=== PATIENT | male | born 1945 | race Caucasian/White ===

== ENCOUNTER 2016-06-07 18:15 | Inpatient (IN) | payer MEDICARE, BC ==
[~2016-06-07] VITALS: Ht 198.1 cm; Wt 85.9 kg
--- NOTE | ~2016-06-07 | OR ---
PATIENT'S NAME: DELFINA JUAREZ [facility] AGE: 70 Y [address] ROOM: [place] [id number] [facility] ADMIT DATE: 06/07/2016 OR/Procedure Report DISCHARGE DATE: FAMILY PHYSICIAN: Jaxon Vasquez MD ATTENDING PHYSICIAN: NADJA SEYMOUR V SURGEON: Areli Parsons MD MOBILE BATTERY TECHNICIAN: DATE OF PROCEDURE: 06/15/2016 ANESTHESIA: Sedation with Ativan. PRE-PROCEDURE DIAGNOSES: 1. Post-intraventricular hemorrhage Hydrocephalus. 2. Decreased level of consciousness. POST-PROCEDURE DIAGNOSES: 1. Post-intraventricular hemorrhage Hydrocephalus. 2. Decreased level of consciousness. PROCEDURES PERFORMED: Insertion of a lumbar drain for cerebrospinal fluid drainage. CLINICAL HISTORY: The patient is a 70-year-old male patient, who was admitted on June 07, 2016 with the main diagnosis of a large right thalamic hemorrhage with intraventricular extension. The patient had a dense left hemiplegia and facial droop. The patient had no hydrocephalus on the admission imaging. Gradually, the patient's level of consciousness started to deteriorate. On the day of procedure, the patient was examined. He was only responding to sternal rub, and according to the family, his level of consciousness significantly changed. The patient was assessed by the hospitalist, and his blood sugar was normal. He was being treated for UTI urinary tract infection with the appropriate antibiotics. Brain imaging was repeated, and that showed an enlargement of the ventricles and no new hemorrhage. I recommended the above-mentioned procedure to try to drain CSF cerebrospinal fluid, and hopefully improve the patient's level of consciousness. If the patient's level of conscious improves, then this patient will require placement of a ventriculoperitoneal shunt. I discussed the procedure and the risks with the patient and the patient's . A signed informed consent was obtained. PATIENT'S NAME: DELFINA JUAREZ [facility] AGE: 70 Y [address] ROOM: [place] [id number] LOCATION: [facility] ADMIT DATE: 06/07/2016 OR/Procedure Report DISCHARGE DATE: FAMILY PHYSICIAN: Jaxon Vasquez MD ATTENDING PHYSICIAN: NADJA SEYMOUR V DESCRIPTION OF PROCEDURE: The patient was placed in a lateral position with the right side up. The lumbar region was prepped and draped. The interspinous space at L4-L5 was identified. Local anesthetic was applied. Tuohy needle was inserted, then blood-tinged CSF cerebrospinal fluid escaped under [id number] pressure. The lumbar drain catheter was inserted without any resistance. The catheter was capped and tied off. The catheter was then secured to the skin with 3-0 silk. The lumbar region was covered with Tegaderm. The catheter was tested, and there was spontaneous CSF cerebrospinal fluid drainage. The catheter was connected to the drainage system, and we had satisfactory CSF cerebrospinal fluid drainage. I had no complications during the procedure, and the patient tolerated it very well. MD SHAHBAZ KELLER/modl /[id number] CC: MD Jaxon Caro MD d: 06/15/16 2223 t: 06/18/16 1325, OPERATIVE SUMMARY
--- NOTE | ~2016-06-07 | HP ---
PATIENT'S NAME: DELFINA JUAREZ [facility] AGE: 70 Y [address] ROOM: [place] [address] LOCATION: [facility] ADMIT DATE: 06/07/2016 History & Physical DISCHARGE DATE: FAMILY PHYSICIAN: PHYSICIAN, UNKNOWN ATTENDING PHYSICIAN: NADJA SEYMOUR V DATE OF SERVICE: CHIEF COMPLAINT: Left-sided weakness. HISTORY OF PRESENT ILLNESS: The patient is a 70-year-old male with past medical history of dementia and hypothyroidism. The patient was noted to have diffuse left-sided weakness at home earlier today. He was taken to the hospital in [place]. A CAT scan there showed a medium-sized right thalamic hemorrhage with extension into the 3rd ventricle. The patient was transferred to [facility] for neurosurgical evaluation. At this point, the patient has been seen by Dr. Parsons, who recommended blood pressure control and serial neuro checks. No urgent surgical intervention is planned. REVIEW OF SYSTEMS: The patient only complains of some nausea which is being controlled with antiemetics. All systems have been reviewed and are negative aside from pertinent positives mentioned above. PAST MEDICAL HISTORY: This is all conveyed by the patient's as he is quite demented with Alzheimer's dementia, typically alert and oriented x2 only, hypothyroidism. That was all the has reported. SURGICAL HISTORY: denies. SOCIAL HISTORY: The patient lives at home with his spouse. No history or ongoing toxic substance use. FAMILY HISTORY: Family history was reviewed and is noncontributory due to a known underlying etiology for his presentation. CURRENT MEDICATIONS: 1. Aspirin. 2. Levothyroxine. PATIENT'S NAME: DELFINA JUAREZ [facility] AGE: 70 Y [address] ROOM: [address] [address] LOCATION: [facility] ADMIT DATE: 06/07/2016 History & Physical DISCHARGE DATE: FAMILY PHYSICIAN: PHYSICIAN, UNKNOWN ATTENDING PHYSICIAN: NADJA SEYMOUR V 3. Namenda. PHYSICAL EXAMINATION: VITAL SIGNS: Blood pressure 153/80, pulse is 76, saturating 96% on room air. Afebrile, respirations are 16. GENERAL: Appears as an elderly, frail male, straining to go to the bathroom. NEUROLOGIC: Significant for left-sided hemiparesis. Eye exam shows pupils are reactive to light. The patient is awake and alert, appears to be at his baseline. LYMPHATIC: No cervical lymphadenopathy. NECK: No thyromegaly. LUNGS: Clear to auscultation. HEART: Rate is regular with no appreciable murmurs, gallops, or rubs. GI: Abdomen is soft, nontender, and nondistended. : No costovertebral angle tenderness. Vascular 2+ pedal pulses. MUSCULOSKELETAL: No muscle or joint abnormalities. SKIN: Warm and dry. PSYCHIATRIC: Examination reveals appropriate mood, cognition, and affect. LABORATORY DATA: Studies available from [place]; a CAT scan as described above, unremarkable basic metabolic profile, EKG Shows right bundle-branch block. ASSESSMENT AND PLAN: 1. This is a 70-year-old male, who is admitted with right intraparenchymal hemorrhage. We will control the blood pressure to keep systolic below 150 as per discussion with Dr. Parsons. The patient will be kept n.p.o. and will receive serial neuro checks. A re-imaging will be conducted tomorrow as per Dr. Parsons. 2. Hypothyroidism. We will continue the patient's Synthroid. 3. Dementia. We will hold off on his Namenda. 4. DVT prophylaxis. Will be non pharmacologic due to an ongoing hemorrhage. 5. We will provide him with GI regimen. Additional management will depend on clinical course. Time dedicated ti this patient's encounter is 25 minutes. MD MIKE WEBB/mirtha PATIENT'S NAME: DELFINA JUAREZ [facility] AGE: 70 Y [address] ROOM: [address] [address] LOCATION: [facility] ADMIT DATE: 06/07/2016 History & Physical DISCHARGE DATE: FAMILY PHYSICIAN: PHYSICIAN, UNKNOWN ATTENDING PHYSICIAN: NADJA SEYMOUR V /[id number] D: 356 T: HISTORY & PHYSICAL
--- NOTE | ~2016-06-07 | DS ---
PATIENT'S NAME: DELFINA JUAREZ [facility] AGE: 70 Y [address] ROOM: [place] [address] LOCATION: [facility] ADMIT DATE: 06/07/2016 Discharge Summary DISCHARGE DATE: 06/30/2016 FAMILY PHYSICIAN: Jaxon Vasquez MD ATTENDING PHYSICIAN: Frankie Bradley V ATTENDING PHYSICIAN: Stephen Hall MD PRIMARY CARE PHYSICIAN: Dr. Jaxon Vasquez. FINAL DIAGNOSES: 1. Right thalamic hemorrhage. 2. Communicating hydrocephalus, status post SKIVER MACHINE shunt. 3. Dementia. 4. Essential hypertension. 5. Status post SKIVER MACHINE shunt. 6. Dysphagia. 7. Urinary retention. CONSULTATIONS: 1. Neurosurgery, Dr. Parsons. 2. Rehab, Dr. Troncoso. PROCEDURES PERFORMED: 1. Insertion of a lumbar drain for CSF drainage by Dr. Parsons. 2. Stealth navigation for placement of ventricular catheter and left occipital SKIVER MACHINE shunt insertion by Dr. Parsons. REASON FOR ADMISSION: This is a 70-year-old male, who presented with left- sided weakness. CT scan showed that the patient had a right thalamic hemorrhage with extension into the third ventricle. He was then transferred to [facility]. Please see Dr. Bradley' admission H and P for further details. DIAGNOSTIC STUDIES: Duplex ultrasound of upper extremities was done, that showed no evidence of thrombophlebitis in the deep or superficial veins from the mid to the upper extremities. Accu-Chek was 102. ProBNP 228. Serial CBCs were done, that showed essentially normal white count, hemoglobin, hematocrit, and platelet levels. Serial CMPs were done, the patient had normal electrolytes. During this admission, his kidney function test was normal as well. Liver function tests were normal as well. PT 10.7, INR 1.0. UA showed many bacteria. On 06/13/2016, vitamin B12 was 259, TSH 2.11. PATIENT'S NAME: DELFINA JUAREZ [facility] AGE: 70 Y [address] ROOM: [place] [address] LOCATION: [facility] ADMIT DATE: 06/07/2016 Discharge Summary DISCHARGE DATE: 06/30/2016 FAMILY PHYSICIAN: Jaxon Vasquez MD ATTENDING PHYSICIAN: Frankie Bradley V CT head with no contrast was done for left-sided weakness on 06/08/2016, that showed hemorrhage, that was stable since previous day. Mild ventriculomegaly was noted. CT head was repeated on several occasions during this admission. Repeat CT head showed right thalamic hemorrhage that appeared stable. Blood in the ventricular system was again noted in the right lateral ventricle and in both occipital horns, slightly increased since prior volume. No new parenchymal hemorrhages were noted. The patient had increased drowsiness on 06/13/2016, and CT head showed stable head CT, intracranial hemorrhage without significant change was noted. On June 15, 2016, the patient underwent a repeat CT head, that showed right basal ganglia hemorrhage with breakthrough into the ventricles, that was resolving. No new hemorrhaging was noted. Transverse frontal horn measurement at the level of the foramina of Phan is 52 mm, which measured 1 mm larger than before. Atrophy and senescent white matter disease were stable. Repeat CT head was done the next day, that showed intracranial hemorrhage to be stable. On June 19, 2016, the patient underwent another CT head with no contrast, that showed right thalamic hematoma with expected evolutionary change, intraventricular hemorrhage decreased, ventriculomegaly decreased, bifrontal subdural collections, probably effusions were noted. The patient underwent a SKIVER MACHINE shunt at that point of time. A CT head without contrast was done subsequently and showed status post placement of SKIVER MACHINE shunt catheter without evidence of complication. Evolving intracranial hemorrhages were stable. The patient also underwent a shunt series postop and that showed ventriculoperitoneal shunt in place with distal portion of the catheter tubing visualized at the left lower quadrant of the abdomen. Urine culture showed Staph epidermidis, that was resistant to Bactrim and penicillin. HOSPITAL COURSE: This is a 70-year-old male, who presented with left hemiplegia. CT scan of the brain showed the patient had right thalamic hemorrhage with intraventricular extension at that point of time. The patient was transferred from an outlying facility and admitted to [facility]. Dr. Parsons, Neurosurgery, was consulted and followed up with the patient. Repeat CT scans were done on several occasions during this admission. Strict blood pressure control was achieved in the initial phase, and systolic blood pressure was kept less than 150 based on Neurosurgery's recommendations with the help of labetalol. The patient had dysphagia, and initially, there was discussion about placement of a feeding tube. However, the patient did not require any feeding tube. Speech Therapy followed up with the patient on a regular basis, and the patient continued to do better from a dysphagia perspective. PATIENT'S NAME: DELFINA JUAREZ [facility] AGE: 70 Y [address] ROOM: [id number] [place], [place] [address] LOCATION: [facility] ADMIT DATE: 06/07/2016 Discharge Summary DISCHARGE DATE: 06/30/2016 FAMILY PHYSICIAN: Jaxon Vasquez MD ATTENDING PHYSICIAN: Frankie Bradley V The patient had left hemiplegia secondary to his right thalamic hemorrhage. It was later found that the patient had extension into the ventricles and required a SKIVER MACHINE shunt. Dr. Parsons was then consulted, and the patient underwent a SKIVER MACHINE shunt placement with Dr. Parsons subsequently. Repeat CT head was done on several occasions during this admission and continued to show stability about the hemorrhage. A Doppler ultrasound of the upper extremity was done on 06/15/2016, that showed no evidence of DVT. The patient underwent a SKIVER MACHINE shunt placement, that was uncomplicated with Dr. Parsons on 06/19/2016. Subsequently, he was doing well and was awaiting placement at rehab facility closer to home in [place]. The patient also has dementia, and his dementia medications were started during this admission. The patient has dementia, and he has left hemiplegia currently. He received physical therapy during this admission, also received speech therapy, and he was tolerating p.o. His SKIVER MACHINE shunt was stable. He continued to do well and was then discharged to inpatient rehab facility in [place] in stable condition. DISCHARGE INSTRUCTIONS: The patient was discharged to [facility] in stable condition. He was flown by [facility]. The patient is to follow up with his PCP in 3-4 days' time. The patient is also to follow up with Neurosurgery in [place] in 2 weeks' time. Staple and suture removal with PCP/neurosurgery on 07/02/2016. The patient needs a repeat CT head per Neurosurgery on 07/20/2016. The patient is a do not resuscitate, do not intubate code status. He is on a pureed and regular liquid diet with 1:1 feed. Calorie count is not needed. The patient is not n.p.o. Weightbearing is as tolerated with assistance and fall precautions. OT, PT, and Speech therapy to evaluate and treat as indicated. O2 p.r.n. to keep sats more than 90%. CBC, BMP at followup with PCP recommended. The patient does not have a urinary catheter. He may not have alcoholic beverages. Rehab potential is fair. Discharge potential is fair. The patient and family are aware of condition and prognosis and were updated by me. May crush appropriate medications. DISCHARGE MEDICATIONS: 1. Norvasc 10 mg p.o. daily for hypertension. 2. Levothyroxine 100 mcg p.o. daily for hypothyroidism. 3. Namenda 10 mg p.o. b.i.d. for dementia. 4. Lopressor 12.5 mg p.o. b.i.d. for hypertension. 5. MiraLAX 17 g p.o. daily for constipation. 6. Flomax 0.4 mg p.o. q.h.s. for urinary retention. 7. Senokot syrup 10 mL p.o. q.h.s. for constipation. 8. Tylenol 650 mg p.o. q.6 hours p.r.n. pain/fever. 9. Milk of magnesia 30 mL p.o. daily p.r.n. constipation. PATIENT'S NAME: DELFINA JUAREZ [facility] AGE: 70 Y [address] ROOM: [address] [address] LOCATION: [facility] ADMIT DATE: 06/07/2016 Discharge Summary DISCHARGE DATE: 06/30/2016 FAMILY PHYSICIAN: Jaxon Vasquez MD ATTENDING PHYSICIAN: Frankie Bradley V 10. The patient's aspirin was held during this admission. Hold aspirin until repeat CT head and clearance by Neurosurgery in [place]. This patient was managed by hospitalist and neurosurgery teams during this admission. STEPHEN HALL MD MT/mirtha /[id number] d: 07/05/16 0307 t: 07/18/16 1004, DISCHARGE SUMMARY
--- NOTE | ~2016-06-07 | OR ---
PATIENT'S NAME: DELFINA JUAREZ [facility] AGE: 70 Y [address] ROOM: [place] [address] [facility] ADMIT DATE: 06/07/2016 OR/Procedure Report DISCHARGE DATE: FAMILY PHYSICIAN: Jaxon Vasquez MD ATTENDING PHYSICIAN: NADJA SEYMOUR V SURGEON: Areli Parsons MD PARKS AND RECREATION WORKER: DATE OF PROCEDURE: 06/19/2016 ANESTHESIOLOGIST: Piyush Walker MD ANESTHESIA: General. COMPLICATIONS: None. ESTIMATED BLOOD LOSS: Minimal. PREOPERATIVE DIAGNOSIS: Post intraventricular hemorrhage communicating hydrocephalus. POSTOPERATIVE DIAGNOSIS: Post intraventricular hemorrhage communicating hydrocephalus. PROCEDURES PERFORMED: 1. Stealth navigation system for placement of ventricular catheter. 2. Left occipital ventriculoperitoneal shunt insertion (valve used is medium pressure PS Medical valve). CLINICAL HISTORY/INDICATIONS FOR PROCEDURE: The patient is a 70-year-old male patient, who was admitted to the hospital on 06/07/2016 with a right thalamic hemorrhage extending into the ventricles causing intraventricular hemorrhage. Initially the patient had no hydrocephalus. Throughout the admission, the patient's level of consciousness deteriorated. Repeat brain imaging showed hydrocephalus. A lumbar drain was inserted and that resulted in significant improvement of the patient's level of consciousness. Given that, I recommended the above-mentioned surgery to the patient's family. I discussed the risks and benefits. Signed informed consent was obtained, and the patient was brought in for surgery. DESCRIPTION OF PROCEDURE: The patient was seen in the preoperative care unit and the correct site was marked. Then, he was transferred to the main operating theater, was given general anesthetic, and underwent endotracheal intubation without complications. Preoperative antibiotics were given. Calf compressors were used throughout the procedure. The patient's head was turned to the right side to expose the left parieto-occipital scalp. Pegram rolls PATIENT'S NAME: DELFINA JUAREZ [facility] AGE: 70 Y [address] ROOM: [place] [address] LOCATION: [facility] ADMIT DATE: 06/07/2016 OR/Procedure Report DISCHARGE DATE: FAMILY PHYSICIAN: Jaxon Vasquez MD ATTENDING PHYSICIAN: NADJA SEYMOUR V were placed under the left shoulder. The hair overlying the suboccipital and parietal regions were clipped off. The abdomen was also exposed. All the joints and bony prominences were securely padded. Then, the patient was registered to the Deep Domain navigation system with good accuracy. I then navigated the entry point (lit hole site) on the skin and based on that, I marked a question piyush incision around it. I also marked the periumbilical incision on the left side. The surgical sites were prepped and draped as per usual. The proposed skin incisions were infiltrated with 0.25% Marcaine with epinephrine. I started by opening the abdominal incision. The skin was sharply opened down to subcutaneous tissue, down to the anterior rectus sheath. The sheath was opened to expose the rectus muscle. The posterior rectus sheath was exposed and incised. I checked the entry into the peritoneum using four [place] and was satisfied with that. Then, I proceeded to open the head incision. The skin was sharply opened down to the subgaleal plane. Then, the pouch for the valve was created without complications. I used the Deep Domain navigation system to navigate the lit hole site on the bone and the periosteum there was coagulated. Then, a high-speed Midas Tim drill was brought in and one lit hole was fashioned down to the dura. The dura was coagulated and incised. The brain surface was coagulated and incised. Then, I proceeded to tunnel the distal catheter. The shunt passer was inserted from the head to the abdomen without complications. Distal catheter was tunneled. The distal catheter was connected to the medium pressure PS Medical valve, the connection was tied off with 2-0 silk. Then, I proceeded to insert the ventricular catheter. I used the Axi[employer] ventricular catheter minister of religion. The insertion of the catheter was navigated using the [employer]. I got CSF at low pressure at about 5 cm from the skull inner table. The catheter was advanced to about 8 cm from the skull inner table. CSF continued to drip. The ventricular catheter was connected to the valve and that was tied off. The valve was positioned in the pouch without complications. I was satisfied with that. The valve was secured to the periosteum with 4-0 Nurolon. Then, the distal catheter was inserted without any resistance into the peritoneal cavity. The opening into the posterior rectus sheath was closed using 2-0 Vicryl. Then, I proceeded to closure. The abdominal incision was closed in layers with 2-0 Vicryl to the anterior rectus sheath, 2-0 Vicryl to the subcutaneous tissue, and zaki to the skin. The head incision was also closed in layers with 2-0 Vicryl to the galea and a running 3-0 Prolene for the skin. Sterile dressings were applied. PATIENT'S NAME: DELFINA JUAREZ [facility] AGE: 70 Y [address] ROOM: [place] [address] LOCATION: [facility] ADMIT DATE: 06/07/2016 OR/Procedure Report DISCHARGE DATE: FAMILY PHYSICIAN: Jaxon Vasquez MD ATTENDING PHYSICIAN: NADJA SEYMOUR V At the end of the operation, the instrument and sponge counts were correct. The patient tolerated the operation without complications. ARELI PARSONS MD AB/modl /[id number] CC: Jaxon Vasquez MD d: 06/19/168 t: 06/22/162199, OPERATIVE SUMMARY
--- NOTE | ~2016-06-07 | CON ---
PATIENT'S NAME: DELFINA JUAREZ [facility] AGE: 70 Y [address] ROOM: [place] [id number] LOCATION: GICU ADMIT DATE: 06/07/2016 Consultation DISCHARGE DATE: FAMILY PHYSICIAN: PHYSICIAN, UNKNOWN ATTENDING PHYSICIAN: NADJA SEYMOUR V DATE OF CONSULTATION: 06/07/2016 REFERRING PHYSICIAN: SENIA FRITZ MD FAMILY PHYSICIAN: Arthur Acosta MD. CHIEF COMPLAINT: Right thalamic intraparenchymal hemorrhage, intraventricular hemorrhage, left dense hemiplegia. HISTORY OF PRESENT ILLNESS: The patient is a 70-year-old left-handed male patient, who was diagnosed at [facility] to have the right thalamic intraparenchymal hemorrhage with extension into the lateral ventricles causing intraventricular hemorrhage. According to the and the notes, the patient and his were having intercourse and immediately, the noticed dense weakness on his left upper and lower extremities. She managed to call her neighbors and [facility] was called. The patient was taken to the emergency, were a noncontrast CT head showed the above-mentioned findings. I was contacted and I personally reviewed the images. I recommended transferring the patient over for close observation and possible surgical intervention if needed. I met the patient in the presence of his in the intensive care unit. The confirmed the history. At the time of the consultation, the patient was complaining of wygj-na-nrfhzheo headache. He was unable to move the left side of his body. He denied nausea. The rest of the history was limited. PAST MEDICAL AND SURGICAL HISTORY: Thyroid surgery and dementia. MEDICATIONS: Listed in the patient's chart. ALLERGIES: NO KNOWN DRUG ALLERGIES. REVIEW OF SYSTEMS: All points of review of systems were asked about. Pertinent positives were mentioned. PATIENT'S NAME: DELFINA JUAREZ [facility] AGE: 70 Y [address] ROOM: [address] [address] LOCATION: GICU ADMIT DATE: 06/07/2016 Consultation DISCHARGE DATE: FAMILY PHYSICIAN: PHYSICIAN, UNKNOWN ATTENDING PHYSICIAN: NADJA SEYMOUR V FAMILY HISTORY: The patient has a sister who has Alzheimer's disease. SOCIAL HISTORY: Nonsmoker. No history of alcohol drinking. PHYSICAL EXAMINATION: GENERAL: The patient was examined in the intensive care unit. He was awake and cooperative. HEENT: Head is atraumatic. The pupils were 3 mm and reactive. NEUROLOGICAL: He was alert, awake, oriented to himself, and to place. He was disoriented to time. He named 3/3 objects. He followed 1 and 2 step commands. He had dense left upper and lower extremity weakness. He also has left hemisensory loss. No weakness on the right side. Pupils were 3 mm and reactive. RESPIRATORY: He was not in any respiratory distress. CARDIOVASCULAR: He has strong pulses on the upper extremities. BACK: Not done. GAIT: Not done. NECK: No tenderness to palpation, no palpable masses, painless range of motion LYMPHATIC: No cervical lymphadenopathy MUSCULOSKELETAL: No evidence of muscle wasting SKIN: No abnormal rash INVESTIGATIONS: Noncontrast CT head done in [place]. I personally reviewed the imaging. The scan showed evidence of a right thalamic intraparenchymal hemorrhage with extension into the right lateral ventricle as well as the 3rd ventricle. No evidence of obstructive hydrocephalus. The scan also showed significant and diffuse brain atrophy. No other hematomas were seen. IMPRESSION AND PLAN: This is a 70-year-old male patient, who is on aspirin 325 mg once daily. Had the sudden onset of left hemiplegia earlier today. His scan showed evidence of right thalamic intraparenchymal hemorrhage as well as intraventricular hemorrhage. No evidence of hydrocephalus. RECOMMENDATIONS: 1. Observation in the intensive care unit. 2. Repeat noncontrast CT head on 06/08/2016 to reassess the right thalamic bleed and reassess for hydrocephalus. I personally reviewed the imaging with the patient and pointed out the abnormalities seen. I then discussed all the issues associated with a thalamic bleed and interventricular hemorrhage. Based on the imaging, I clearly indicated that the patient does not require any surgical intervention at this point. However, I indicated that if the repeat scan shows obstructive hydrocephalus or if the patient's level of consciousness deteriorates, then PATIENT'S NAME: DELFINA JUAREZ [facility] AGE: 70 Y [address] ROOM: [id number] [place], [place] [address] LOCATION: [facility] ADMIT DATE: 06/07/2016 Consultation DISCHARGE DATE: FAMILY PHYSICIAN: PHYSICIAN, UNKNOWN ATTENDING PHYSICIAN: NADJA SEYMOUR V this patient may require insertion of ventriculostomy tube to divert CSF and manage obstructive hydrocephalus. The patient's asked appropriate questions about that and all those questions were answered to her satisfaction. It was pleasure taking care of this patient and thanks for having us involved. WILLIAMD MD SHAHBAZ FRITZ/mirtha /[id number] d: 06/08/16 0345 t: 06/10/16 1234, CONSULTATION REPORT
--- NOTE | ~2016-06-07 | ENPV ---
Vascular Upper Extremities Veins Procedure Demographics Patient Name DELFINA JUAREZ Date of Study 06/15/2016 Patient Number [id number] Gender Male Date of 1945 Age 70 Visit Number [id number] Height Accession Number [id number] Weight Room Number G6218 BSA BMI Referring Issa Castillo MD Interpreting Anton Schrader MD Physician Physician Physician Ordering Physician Issa Castillo MD Supervisor Wrapping Room Lipcoat Sprayer Vandana Kraft, RT,RVT,RDCS Bere Rhodes Conclusions Summary No evidence of thrombophlebities is noted in the deep or superficial veins of the imaged upper extremity(ies). Procedure Type of Study: Veins:Upper Extremities Veins, Upper Extremity Left. Patient Status:Routine. Study Location:Inpatient Portable. Technical Quality:Adequate visualization. - Preliminary reported to:PAWAN Payne. Velocities are measured in cm/s ; Diameters are measured in cm Right UE Vein Measurements 2D and Doppler Measurements + + + + +--------+ + !Location !Visualized !Compressibility !Thrombosis !Signal !Reflux ! + + + + +--------+ + !SCV !Yes ! !None !Phasic ! ! + + + + +--------+ + Left UE Vein Measurements 2D and Doppler Measurements + + + + +--------+--------+ !Location !Visualized !Compressibility !Thrombosis !Signal !Reflux ! + + + + +--------+--------+ !IJV !Yes !Yes !None !Phasic !No ! + + + + +--------+--------+ !SCV !Yes !Yes !None !Phasic !No ! + + + + +--------+--------+ !Innominate !Yes !Yes !None !Phasic !No ! + + + + +--------+--------+ !Axillary !Yes !Yes !None !Phasic !No ! + + + + +--------+--------+ !Brachial !Yes !Yes !None !Phasic !No ! + + + + +--------+--------+ !Radial !Yes !Yes !None !Phasic !No ! + + + + +--------+--------+ !Ulnar !Yes !Yes !None !Phasic !No ! + + + + +--------+--------+ !Basilic !Yes !Yes !None !Phasic !No ! + + + + +--------+--------+ !Cephalic !Yes !Yes !None !Phasic !No ! + + + + +--------+--------+ Signature dtt: DUARTE LADD dtd: 06/15/16 1316 Physician Self Edit
--- NOTE | ~2016-06-07 | CON ---
PATIENT'S NAME: DELFINA JUAREZ [facility] AGE: 70 Y [address] ROOM: [address] [place], [place] [address] LOCATION: GICU ADMIT DATE: 06/07/2016 Consultation DISCHARGE DATE: FAMILY PHYSICIAN: Jaxon Vasquez MD ATTENDING PHYSICIAN: NADJA SEYMOUR V REFERRING PHYSICIAN: SEINA FRITZ MD REQUESTING PHYSICIAN: Portia Monterroso MD. HISTORY OF PRESENT ILLNESS: This 70-year-old gentleman is referred for rehab evaluation, admitted on 06/07/2016, with left-sided weakness and was seen at the local hospital. CT scan showed a medium-sized right thalamic hemorrhage stroke with extension into the ventricle. He was nauseated in the beginning which is controlled by now. PAST MEDICAL HISTORY: Past history of significant, 1. Dementia. 2. Hypothyroid. 3. Alzheimer's. 4. Hypertension. He is alert and oriented at the present time, with few cues, he can attend better to the left side. He has left facial droop. However, his voice is clear and not wet. Tongue and soft palate are moving well on the left side. However, tongue is slightly delayed on the left side. He has very little vision neglect on the left side temporal area. On and off, he will cough and however chest is clinically clear. Voice is clear and not wet. He can swallow without much difficulty. I have advised him to sit in upright position 90 degrees and to swallow with tuck chin. He is at the present time, slightly brisk, deep tendon reflex on the left side, and Babinski is equivocal on both sides. There is very little volitional movement in the left lower extremity; however, no volitional movement in the left upper extremity. Vitals, blood pressure 150/86, temperature 98.8, pulse 85, respirations 21, he is 5 feet 11 inches tall and weighs 87.8 kg. He is able to comprehend and express fairly well; however, he needs cues and on off to orient well to place and person. PATIENT'S NAME: DELFINA JUAREZ [facility] AGE: 70 Y [address] ROOM: [address] [place], [place] [address] LOCATION: GICU ADMIT DATE: 06/07/2016 Consultation DISCHARGE DATE: FAMILY PHYSICIAN: Jaxon Vasquez MD ATTENDING PHYSICIAN: NADJA SEYMOUR V MEDICATIONS: He is on the following medications, 1. Levalbuterol. 2. Levothyroxine. 3. Colace. 4. NaCl 0.9%. 5. Zofran. 6. Apresoline. We will start him on PT, OT, and speech. Please see the orders. I plan to take him to rehab for intensive rehabilitation of about 3-4 weeks aiming to discharge on modified independence. All the above was explained to him in detail and to his . They verbalized understanding and agreement. Thank you for this referral. When stable, provided he is okayed by the admitting physician, I will take him for rehab. ANABELL BOLAÑOS MD WMS/modl /[id number] d: 06/08/16 1801 t: 06/09/16 0831, CONSULTATION REPORT
[2016-06-07] MEDS ORDERED: MEMANTINE HCL10 MG PO (20:26)
[2016-06-07] MEDS ORDERED: ASPIRIN325 MG PO (20:27)
[2016-06-07] MEDS ORDERED: LEVOTHROID (S100 MCG PO (20:27)
--- NOTE | 2016-06-08 05:35 | NUR ---
Significant Event: PATIENT ALERT, ORIENTED TO BASELINE NEUROLOGICAL STATUS. PATIENT HAS REPORTED DEMENTIA, THAT IS WORSE AT NIGHT. NIHSS 12. LEFT SIDE FACIAL DROOP. LEFT SIDE EXTREMITY FLACCIDITY WITH LOSS OF SENSATION TO PAINFUL STIMULI. FOLLOW UP CT HEAD OVERNOC FOR COMPARISION. CONTINUES WITH HIGH BLOOD PRESSURES, GOAL SBP <150. PRN LABETALOL AND HYDRALAZINE GIVEN. DR SEYMOUR NOTIFIED OF BP >150 AFTER LABETALOL GIVEN, ORDER FOR LABETALOL GTT TO TITRATE TO KEEP SBP < 150, NOT CURRENTLY RUNNING. CONTINUES ON ROOM AIR. NPO EXCEPT FOR SIPS. HYPERACTIVE BOWEL SOUNDS WITH 2 SMEAR INCONTINENT BMS. IV TO LEFT HAND, NS AT 75ML/HR. LEES WITH ADEQUATE UOP. Follow up: MONITOR BPS, TRANSFER TO NTU?
[2016-06-08 10:30] LABS: BILIRUBIN URINE NEGATIVE (NEGATIVE); BLOOD URINE 250 /UL (NEGATIVE); COLOR URINE YELLOW (YELLOW); GLUCOSE URINE NEGATIVE (NEGATIVE); KETONE URINE 5 mg/dL (NEGATIVE); LEUKOCYTES URINE 25 /UL (NEGATIVE); NITRITE URINE NEGATIVE (NEGATIVE); PROTEIN URINE 100 mg/dL (NEGATIVE); SPEC GRAVITY URINE 1.025 (1.003-1.035); TURBIDITY URINE CLEAR (CLEAR); UROBILINOGEN URINE 1 mg/dL (NORMAL)
[2016-06-08 10:37] LABS: EPITHELIAL URINE NEGATIVE #/HPF (NEGATIVE); RBC URINE 20-50 #/HPF (NEGATIVE)
[2016-06-08 10:38] LABS: BACTERIA URINE NEGATIVE (NEGATIVE); YEAST URINE RARE (NEGATIVE)
--- NOTE | 2016-06-08 16:56 | NUR ---
Significant Event: NEURO: Appropriate speech. Left upper extremity contracted, withdraws to noxious stimuli. Right upper extremity spontaneous and strong. Left lower extremity withdraws with light stimulus. Right lower extremity spontaneous movement and strong. Left facial droop. Slightly slurred speech. Drowsy. CARDIO: Labetelol 10 mg given 3 times this shift for SBP >150. HR 60s-70s. Afebrile. No edema. Pulses 05/18/. GI: Mech soft, thin liquids, no straw. Small sips and bites. Coughs after drinking and eating. : Marginal urine output. Dr. Dasilva aware. IV: NS at 75 ml/hr. RESP: Desats with sleeping to 88-89%. Supplemental oxygen for part of shift, now on room air. SaO2 96% MUSCL/SKEL: Sling to left arm. Foot drop boot on left foot. Follow up: Q2H neuro checks. Monitor for s/s of hydrocephalus.
[2016-06-09 05:36] LABS: BASOPHIL % 0.2 %; EOSINOPHIL % 0.4 %; HEMATOCRIT 39.9 % (37.0-53.0); HEMOGLOBIN 13.7 g/dL (11.0-16.0); IMMATURE GRANULOCYTE % 0.6 %; LYMPHOCYTE # 1.3 K/uL (0.8-4.0); LYMPHOCYTE % 24.4 %; MCH 34.8 pg (27.0-34.0); MCHC 34.3 gm/dL (32.0-36.5); MCV 101.3 fl (83.0-98.0); MONOCYTE # 0.6 K/uL (0.0-1.0); MONOCYTE % 10.3 %; MPV 8.6 fl (9.4-12.4); NEUTROPHIL # (ANC) 3.4 K/uL (1.4-9.0); NEUTROPHIL % 64.1 %; NRBC % 0 /100WBC (0-0.00); PLATELET COUNT 290 K/uL (150-450); RBC 3.94 M/uL (3.50-5.50); RDW-CV 11.9 % (11.9-14.6); WBC 5.3 K/uL (4.0-11.0)
[2016-06-09 05:52] LABS: ALK PHOS 100 IU/L (33-138); ALT 25 IU/L (12-78); AST 13 IU/L (10-40); BLOOD UREA NITROGEN 10 mg/dL (6-24); CALCIUM 8.2 mg/dL (8.5-10.5); CHLORIDE 108 mMol/L (96-110); CO2 25 mMol/L (22-32); CREATININE 0.9 mg/dL (0.6-1.3); ESTIMATED GFR (MDRD EQUATION) > 60; SODIUM 140 mMol/L (135-145); TOTAL BILIRUBIN 0.6 mg/dL (0.0-1.5); TOTAL PROTEIN 6.7 g/dL (6.0-8.4)
--- NOTE | 2016-06-09 11:00 | NUR ---
Introduced self and role of care management to patient's and [id number]. Patient and live in [place]. Talked about inpatient rehab and facility options. says her first prerference is [facility] in [place], [place] and second choice would be [facility] in [place], [place]. She says they have 3 children in [place] and they also have a second home in [place]. She says it would just be easier for everyone. She says she has had surgery at [facility] and is familiar with them. Talked about transporation and told her medicare will not cover transportation there so would be private pay. We talked about options of private vehicle, ambulance and fixed wing. Told her will try and get some estimates for her on the cost of the options. Referral made to Loretta at [facility] inpatient rehab unit. Information faxed to Loretta at [facility]. Will follow.
--- NOTE | 2016-06-09 17:15 | NUR ---
Significant Event: Patient is disoriented to time/place most times he is asked. He is oriented to self and knows his . He had friend come visit that he recognized. He is still flaccid on the left side, but does withdraw in the upper and lower extremity. Norvasc was started today to help keep SBP <150. Labetalol IVP was given X2 today. He is able to eat ok with help. Speech has been following to evaluate his swallowing. Patient was lifted to the chair X2 today and he tolerated well. When sitting on the edge of the bed he is weak and leans to his left. Rapp catheter was removed and his is incontinent of urine, but output is adequate. Follow up: Continue to monitor
[2016-06-10 05:46] LABS: BASOPHIL % 0.2 %; EOSINOPHIL # 0.1 K/uL (0.0-0.5); EOSINOPHIL % 1.2 %; HEMATOCRIT 40.2 % (37.0-53.0); HEMOGLOBIN 13.4 g/dL (11.0-16.0); IMMATURE GRANULOCYTE % 0.6 %; LYMPHOCYTE # 1.2 K/uL (0.8-4.0); LYMPHOCYTE % 23.2 %; MCH 33.8 pg (27.0-34.0); MCHC 33.3 gm/dL (32.0-36.5); MCV 101.5 fl (83.0-98.0); MONOCYTE # 0.6 K/uL (0.0-1.0); MONOCYTE % 11.9 %; MPV 8.6 fl (9.4-12.4); NEUTROPHIL # (ANC) 3.2 K/uL (1.4-9.0); NEUTROPHIL % 62.9 %; NRBC % 0 /100WBC (0-0.00); PLATELET COUNT 285 K/uL (150-450); RBC 3.96 M/uL (3.50-5.50); RDW-CV 11.9 % (11.9-14.6)
[2016-06-10 06:03] LABS: ALBUMIN 2.8 gm/dL (3.5-5.0); ALK PHOS 91 IU/L (33-138); ALT 24 IU/L (12-78); ANION GAP 14.7 (10.0-19.0); AST 16 IU/L (10-40); BLOOD UREA NITROGEN 9 mg/dL (6-24); CALCIUM 8.4 mg/dL (8.5-10.5); CHLORIDE 106 mMol/L (96-110); CO2 23 mMol/L (22-32); CREATININE 0.8 mg/dL (0.6-1.3); ESTIMATED GFR (MDRD EQUATION) > 60; POTASSIUM 3.7 mMol/L (3.7-5.1); SODIUM 140 mMol/L (135-145); TOTAL BILIRUBIN 0.6 mg/dL (0.0-1.5); TOTAL PROTEIN 6.5 g/dL (6.0-8.4)
--- NOTE | 2016-06-10 06:37 | NUR ---
patient is sleepy but easily awake,will take him a little time to totlally wake up,will follow simple commands,patient is forgetful to time and place moves rt side freely,flaccid on the LT side OF the body but withdraw to partial nailbed pressure,pupils are 3mm rounded equal and react to light,clear upper lungs sound diminished on the bases,room air [id number]=38%. follow up:continue to monitor patient's neuro and respiratory status closely.
--- NOTE | 2016-06-10 12:08 | NUR ---
Significant Event: Alert, oriented to self. Follows commands on the R) side. Flaccid on L), withraws x4. PERRLA. VSS. Norvasc increased to 5 mg today. Afebrile. 1:1 feeder. On RA. Incontinent of bowel and bladder. Scrotal edema. IV to L) hand, dressing changed. Up to chair full lift. Pericares provided. Repositioned q2h. Family at bedside. Transferring to NTU, Maritza Pérez to assume cares. Follow up: monitor. CT in the Am.
--- NOTE | 2016-06-10 19:07 | NUR ---
Significant Event: Patient alert and oriented to self, patient has history of dementia. Left side flaccid. Follows commands with right side. Facial droop to left side with foot drop boot to left foot. Full lift. To keep SBP less than 150, PRN labetalol. Pupils equal and reactive. Incontinent of bowel and bladder. Patient to have CT in am. Follow up:
--- NOTE | 2016-06-11 05:09 | NUR ---
Significant Event: Patient is alert and oriented to self. History of dementia. Denies pain. Denies numbness or tingling but appears to have some kind of impaired sensation to left side. Left side is flaccid. Left facial droop. NIHSS 11. Foot drop boot to left. Follows commands with right side and moves in spontaneously. 2PA, full lift. 2+ pulses. Afebrile. HTN. Labetalol IV give x 1 this shift to keep SBP goal < 150. PERRL. On room air. Lungs clear and diminished. Incontinent of bowel and bladder. IV to left hand SL with no complications. Sling to LUE. Follow up: CT in AM, NIHSS, monitor neuro status, reposition Q2H, incontinence cares
[2016-06-11 05:11] LABS: BASOPHIL % 0.4 %; EOSINOPHIL # 0.1 K/uL (0.0-0.5); EOSINOPHIL % 1.3 %; HEMATOCRIT 40.5 % (37.0-53.0); HEMOGLOBIN 13.9 g/dL (11.0-16.0); IMMATURE GRANULOCYTE % 0.4 %; MCH 34.3 pg (27.0-34.0); MCHC 34.3 gm/dL (32.0-36.5); MONOCYTE # 0.7 K/uL (0.0-1.0); MONOCYTE % 13.8 %; MPV 8.3 fl (9.4-12.4); NEUTROPHIL # (ANC) 3.4 K/uL (1.4-9.0); NEUTROPHIL % 65.1 %; NRBC % 0 /100WBC (0-0.00); PLATELET COUNT 313 K/uL (150-450); RBC 4.05 M/uL (3.50-5.50); RDW-CV 11.9 % (11.9-14.6); WBC 5.2 K/uL (4.0-11.0)
[2016-06-11 05:34] LABS: ALBUMIN 2.9 gm/dL (3.5-5.0); ALK PHOS 108 IU/L (33-138); ALT 31 IU/L (12-78); ANION GAP 11.7 (10.0-19.0); AST 21 IU/L (10-40); BLOOD UREA NITROGEN 13 mg/dL (6-24); CALCIUM 8.6 mg/dL (8.5-10.5); CHLORIDE 103 mMol/L (96-110); CO2 27 mMol/L (22-32); CREATININE 0.9 mg/dL (0.6-1.3); ESTIMATED GFR (MDRD EQUATION) > 60; POTASSIUM 3.7 mMol/L (3.7-5.1); SODIUM 138 mMol/L (135-145); TOTAL BILIRUBIN 0.6 mg/dL (0.0-1.5); TOTAL PROTEIN 6.7 g/dL (6.0-8.4)
--- NOTE | 2016-06-11 15:00 | NUR ---
Significant Event: Alert but drowsy, able to state name but not , place, or time. Makes confused statements, hx of dementia. Denies headahce/pain/ numbness/tingling. L) side flaccid but withdraws slightly to pain, wears sling and footdrop boot. R) side very weak. Full lift to chair. SBP 140-164, NSR 70-90's, afebrile, room air. Labetolol given once for SBP>150. Incontinent of urine, scrotal edema. Mechanical soft diet, no straws, some difficulty with thin liquids. Follow up: Care management consult for transfer to [facility] for 7-10 days then to [place] with family.
--- NOTE | 2016-06-12 04:33 | NUR ---
Significant Event: Patient is alert and oriented to self. History of dementia. Denies pain. Denies numbness or tingling but appears to have some kind of impaired sensation to left side. Left side is flaccid. Left facial droop. NIHSS 11. Foot drop boot to left. Follows commands with right side and moves it spontaneously. 2PA, full lift. 2+ pulses. Afebrile. HTN. Labetalol IV give x 2 this shift to keep SBP goal < 150. PERRL. On room air. Lungs clear and diminished. Incontinent of bowel and bladder. IV to left hand SL with no complications. Sling to LUE. Elevated all extremities and repositioned Q2H. Scrotal edema and redness persists. Mechanical soft diet, no straws. Did have some difficulty taking PO medications. Follow up: NIHSS, monitor neuro status, reposition Q2H, incontinence cares, to [facility] then [place]?
--- NOTE | 2016-06-12 13:31 | NUR ---
A - NUT F/U. A/O TO SELF. HX: DEMENTIA. L) SIDE FLACCID. LABS: ALB 2.9. MEDS: NAMENDA, NAUSEA, SYNTHROID DIET: MECH-SOFT. INTAKE: BITES-50% ENSURE BID NEEDS: 8931-6664 KCAL, 70-87 G PRO D - INADEQUATE NUTRIENT INTAKE R/T DECREASED APPETITE AEB INTAKE RECORD. I - GOAL FOR INTAKE > 50% BY NEXT ASSESSMENT. WILL INC ENSURE TO TID. M/E - WILL MONITOR INTAKE F/U IN 3-5 DAYS.
--- NOTE | 2016-06-12 15:17 | NUR ---
Consult from Dr. Parsons regarding transfer to [facility] and then transfer to [place] later. Left [facility] for Alona on [facility] regarding if starting acute rehab here and then transferrring. Spoke with patient, and ALEYDA. asks if I contacted facilities in [place]. Told her I spoke with Loretta at [facility] inpatient rehab unit on Sunday and she said they should have beds this week. I faxed information on Sunday and am waiting to hear back from them. says that is good news. talks about conversation with Dr. Parsons and him wanting patient to stay here. Asked her what she wants and she says she and patient want to be closer to their children and want to be in [place]. She says it is to hard on both of them to not be near the children and grandchildren for their support. Told her in the past I had been told a patient can not start at one inpatient rehab unit and transfer to another one, but I am trying to get clarification on this. She just keeps saying she doesn't want to upset Dr. Parsons but she doesn't think staying her is best for him. Talked to her about transportation. She does not feel she can transport him and I agree. Told her the estimate for ground ambulance was $7576.00. She is concerned that ambulance will be a long, uncomfortable trip for him. Told her I can also check on fixed wing transportation, and will need to see if says OK for him to fly. Told her I will check with our rehab staff and staff at [facility] regarding if can start at one rehab and transfer to another. Will check with [facility] to see if they have made a decision and if able to accept him. Call from Alona on [facility] and she says medicare does not like a patient to start in one rehab unit and transfer to another unit, due to payment methodology. Called and spoke with Dina at [facility] rehab as Loretta is out today. She says she was just starting to review patient's information. Told her would fax updated therapy notes etc. Asked her if patient starts at one inpatient rehab unit can they transfer after a few days to their unit. She says that would not be covered by medicare and they are unable to accept a patient from another inpt. rehab unit. She will review patient's information and let me know their decision. Will follow.
--- NOTE | 2016-06-12 15:45 | NUR ---
Significant Event: PT ALERT TO SELF. ABLE TO STATE BIRTHDAY AT TIMES. HX DEMENTIA. PERRLA. FOLLOWS SIMPLE COMMANDS. DROWSY AT TIMES, BUT AWAKENS EASILY TO VERBAL/TACTILE STIMULI. L)SIDE REMAINS FLACCID; DOES WITHDRAW TO PAIN TO BOTH LIMBS. MOVES R)SIDE SPONTANEOUSLY AND TO COMMAND; VERY WEAK. IMPAIRED SENSATION TO L)SIDE. 2-ASSIST/TURN Q2H/FULL LIFT. SAT IN THE CHAIR FOR MOST OF THE SHIFT. DENIES ANY PAIN. INCONTINENT LARGE AMOUNTS OF URINE X3. LAST BM ON 06/09. PASSING FLATUS. MILK OF MAGNESIA GIVEN. BILATERAL CALF PUMPS ON. SLING TO L)ARM. L)FOOT DROP BOOT ON. IV TO L)HAND SALINE LOCKED. TAKES PILLS CRUSHED IN APPLESAUCE. MECHANICAL SOFT DIET WITH THIN LIQUIDS. NEEDS ASSISTANCE WITH MEALS AND PO ENCOURAGEMENT. NO STRAWS. Follow up: PENDING PLACEMENT-GIRP VS. REHAB FACILITY IN [place]?
--- NOTE | 2016-06-13 04:26 | NUR ---
Significant Event: Patient is drowsy and responds to name. Has only said two words this shift but tracks as others talk to him. Alert best at the beginning of the shift. at bedside until bedtime. History of dementia. No s/s pain. Impaired sensation to left side. Left side is flaccid. Left facial droop. Left side withdraws to pain. NIHSS 14 but difficult to do because patient was so drowsy and not answering questions or following many commands. Foot drop boot to left. Moves right side spontaneously. 2PA, full lift. 2+ pulses. Afebrile. HTN. Labetalol IV give x 2 this shift to keep SBP goal < 150. PERRL. On room air. Lungs clear and diminished. Incontinent of bowel and bladder. IV to left hand SL with no complications-18 g. Sling to LUE. Elevated all extremities and repositioned Q2H. Passing gas. Scrotal edema and redness persists. Mechanical soft diet, no straws. Did have some difficulty taking PO medications, so crushed and put into applesauce. Follow up: NIHSS, monitor neuro status, reposition Q2H, incontinence cares, to [place] for rehab (NO GIRP.
[2016-06-13 10:18] LABS: BASOPHIL % 0.5 %; EOSINOPHIL % 0.4 %; HEMATOCRIT 44.4 % (37.0-53.0); HEMOGLOBIN 15.4 g/dL (11.0-16.0); IMMATURE GRANULOCYTE % 0.4 %; LYMPHOCYTE # 1.2 K/uL (0.8-4.0); LYMPHOCYTE % 21.9 %; MCH 34.7 pg (27.0-34.0); MCHC 34.7 gm/dL (32.0-36.5); MONOCYTE # 0.6 K/uL (0.0-1.0); MONOCYTE % 11.5 %; MPV 8.2 fl (9.4-12.4); NEUTROPHIL # (ANC) 3.6 K/uL (1.4-9.0); NEUTROPHIL % 65.3 %; NRBC % 0 /100WBC (0-0.00); PLATELET COUNT 356 K/uL (150-450); RBC 4.44 M/uL (3.50-5.50); RDW-CV 11.9 % (11.9-14.6); WBC 5.6 K/uL (4.0-11.0)
[2016-06-13 11:48] LABS: BILIRUBIN URINE NEGATIVE (NEGATIVE); BLOOD URINE 10 /UL (NEGATIVE); COLOR URINE YELLOW (YELLOW); GLUCOSE URINE NEGATIVE (NEGATIVE); KETONE URINE NEGATIVE (NEGATIVE); LEUKOCYTES URINE 25 /UL (NEGATIVE); NITRITE URINE POSITIVE (NEGATIVE); PROTEIN URINE 15 mg/dL (NEGATIVE); TURBIDITY URINE CLEAR (CLEAR); UROBILINOGEN URINE NORMAL (NORMAL)
[2016-06-13 12:02] LABS: RBC URINE RARE #/HPF (NEGATIVE)
[2016-06-13 12:03] LABS: BACTERIA URINE MANY (NEGATIVE); EPITHELIAL URINE 0-2 #/HPF (NEGATIVE)
[2016-06-13 12:04] LABS: MUCUS URINE 4+ (NEGATIVE)
--- NOTE | 2016-06-13 12:48 | NUR ---
Call this a.m. from Catarina at [facility] rehab unit and they are unable to accept patients at this time due to a maintenance issue. She says it may be several weeks befoe they have beds. She suggests [facility]. Told her had mentioned inpatient rehab at [facility] in [place] and Catarina says [facility] runs several units in the area and they have the unit at [facility]. Called and spoke with Kiki at [facility] and she says they have 2 options in the [place] area. A free standing [facility] and the 14 bed unit at [facility]. She says to fax information they will review it for the free standing unit and also make referral to the unit at [facility]. She says the free standing unit won't have a bed until the end of the week and she will check to see what [facility] has. Called air ambulance for estimate on flight to [place]. Information faxed to Kiki at [facility]. Thalia from [facility] calls back and says the estimate is $8961 including ambulance transport to and from the airports. Talked to patient's and ALEYDA and updated them. Told them what Alona and the staff at [facility] had told me about coverage and that patient has to start and finish rehab at the same facility for medicare coverage. Told her no bed at [facility] and about referral to [facility]. She will let her children know and they can check out both the freestanding facility and the unit at [facility]. is emotional today. She says she didn't sleep well last night. She says Tan and her both need to be closer to the kids. Talked to her about the estimate from the fixed wing flight and gave her estimate again for ground ambulance. She says her preference is to fly him as it would be faster and more comfortable for him. She is concerned that Dr. Parsons will be upset with her but says she just can't let Tan stay here. Encouraged her to talk to Dr. Parsons. Put a note on chart for Dr. Parsons regarding discharge plans. Awaiting a decision from [facility]. Will follow.
--- NOTE | 2016-06-13 15:05 | NUR ---
Significant Event: Increased drowsiness throughout shift, Issa contacted. Non-contrast CT ordered. Responds to pain. This am he responded to voice, answered questions briefly and appropriately, and followed commands and moved spontaneously. and [id number] at bedside throughout entire shift. Left side withdraws to pain, slightly. Foot drop boot to left lower extremity, sling to left upper extremity when pt is up. 2PA, full lift. UA collected this afternoon, positive for UTI started on rocephin, pt incontinent for bowel and bladder most of the time, did void per urinal for UA. Pt passing murray. IV to left hand, infusing 60mls/hr NS. Elevated all extremities and repositioned q2h. Scrotal edema and redness persists. Pt NPO at this time, until Dr. Parsons rounds. Did give suppository x1 this pm, no BM since 06/09. Follow Up: Continue plan of cares per MD orders. Possible surgery and D/C to [place] for rehab (No Girp).
--- NOTE | 2016-06-13 16:26 | NUR ---
Received call from Krystal at [facility] and they are not able to accept him. They feel he is not appropriate at this time for inpatient rehab and is more appropriate for a lower level of care. Called and asked Alona on [facility] to assess patient and tell me if appropriate for them if family wanted to go there. Alona calls back and says he is more appropriate for a lower level of care, as not ready for intense therapies at this time. She says to maximize his rehab benefits, skilled care before inpatient rehab would be appropriate. Talked to patient's and ALEYDA regarding above. Told them there are many good skilled facilities in the [place] area to choose from. She says she agrees that he is not ready for intense therapy. She says her son mentioned [facility] in [place] as an option. She does not know if they have skilled care or not. Her sister looks on line and give me some skilled facilities in the area. says she just wants to be sure it is in the [place] or [place] area as she does not want to have to drive in downtown [place] area. Dr. Parsons then come in the room and asks for all staff to leave so he can speak with patient's and ALEYDA. Will follow.
--- NOTE | 2016-06-14 03:01 | NUR ---
Significant Event: Patient is drowsy and responds to name. More alert this shift than yesterday and was answering questions with more than just one to two words. also states patient has significantly improved since the afternoon. At bedside until bedtime. Denies pain. Impaired sensation to left side. History of dementia. No s/s pain. Left side is flaccid. Left facial droop. Left side withdraws to pain. NIHSS 14. Foot drop boot to left. Moves right side spontaneously. 2PA, full lift. 2+ pulses. Afebrile. HTN. Labetalol IV given x 2 this shift to keep SBP goal < 150. On room air. Lungs clear and diminished. Incontinent of bowel and bladder. IV to left wrist infusing NS at 70 mL/hr with no complications. Sling to LUE. Elevated all extremities and repositioned Q2H. Passing gas. Scrotal edema and redness persists. Mechanical soft diet, no straws if patient continues to progress well during the night into breakfast. Is currently NPO. Did have some difficulty taking PO medications, so crushed and put into applesauce. Follow up: NIHSS, monitor neuro status, reposition Q2H, incontinence cares, to [place] for SNF
--- NOTE | 2016-06-14 13:10 | NUR ---
Significant Event: Patient alert to person at this time. At times is very drowsy, but does open eyes. Will say name at times and other times will not. Follows commands even when he is more drowsy. Pupils 3mm, brisk. Left side withdraws to pain. Lungs clear and dim on room air. No signs of pain today. Last BM 06/09, suppository given yesterday and Milk of Mag given today. Has not been eating much, so may be some of this. Now on pureed diet, crush meds with applesauce. Vitals stable except BP was in the 180's. Labetalol given x 2 so far this shift. Up with full lift, incontinent of urine. Iv in left wrist infusing Normal saline at 70mls/hr. Left hand swollen, but IV has great blood return, so arm elevate due to immobility of it. Alarms on for safety. Cares passed to Marlo Betancourt at 1300. Follow up: Neuro status. Plan to transfer to [facility] when stable. BM. On rocephin for UTI.
--- NOTE | 2016-06-14 19:02 | NUR ---
Significant Event: nonverbal. follows some commands. NIHSS=25. eyes open at times/at times will not open eyes to painful stimuli. Full lift with transfers. incontinent of urine. drank 100% of ensure for evening meal and ate bites of food.
--- NOTE | 2016-06-15 05:21 | NUR ---
SIGNIFICANT EVENT: UNABLE TO ASSESS ORIENTATION. NON-VERBAL. PERRLA. LEFT PUPIL IS SLUGGISH AND SLIGHTLY BIGGER THAN RIGHT. RIGHT UPPER EXTREMITY MOVES SPONTANEOUSLY AND SOMETIMES SQUEEZED HAND TO COMMAND. LUE HAD EFFORT AGAINST GRAVITY ON LAST ASSESSMENT. BILATERAL LOWER EXTREMITIES WITHDRAW TO PAIN. UNABLE TO ASSESS SENSATION. LUNGS CLEAR ON ROOM AIR. PUREED DIET, THIN LIQUIDS. PATIENT WOULD NOT OPEN MOUTH EASILY, MEDS WERE VERY DIFFICULT TO GIVE-CRUSH IN APPLESAUCE. ASPIRATION PRECAUTIONS. FULL LIFT. INCONTINENT TO BOWEL AND BLADDER. SCROTUM IS EDEMATOUS WITH REDNESS. NS RUNNING AT 70 ML/HR. FOLLOW UP: SNF IN [place]??
[2016-06-15 12:32] LABS: BASOPHIL % 0.4 %; HEMATOCRIT 42.1 % (37.0-53.0); HEMOGLOBIN 14.4 g/dL (11.0-16.0); IMMATURE GRANULOCYTE % 0.3 %; LYMPHOCYTE # 1.6 K/uL (0.8-4.0); LYMPHOCYTE % 16.4 %; MCH 34.9 pg (27.0-34.0); MCHC 34.2 gm/dL (32.0-36.5); MCV 101.9 fl (83.0-98.0); MONOCYTE # 0.8 K/uL (0.0-1.0); MONOCYTE % 7.8 %; MPV 8.4 fl (9.4-12.4); NEUTROPHIL # (ANC) 7.3 K/uL (1.4-9.0); NEUTROPHIL % 75.1 %; NRBC % 0 /100WBC (0-0.00); PLATELET COUNT 289 K/uL (150-450); RBC 4.13 M/uL (3.50-5.50); RDW-CV 11.8 % (11.9-14.6); WBC 9.7 K/uL (4.0-11.0)
[2016-06-15 12:38] LABS: PROTIME 10.7 SECONDS (9.6-11.1)
[2016-06-15 12:46] LABS: ALBUMIN 3.2 gm/dL (3.5-5.0); ALK PHOS 107 IU/L (33-138); ALT 56 IU/L (12-78); ANION GAP 12.2 (10.0-19.0); AST 30 IU/L (10-40); BLOOD UREA NITROGEN 19 mg/dL (6-24); CALCIUM 8.8 mg/dL (8.5-10.5); CHLORIDE 106 mMol/L (96-110); CO2 25 mMol/L (22-32); ESTIMATED GFR (MDRD EQUATION) > 60; POTASSIUM 4.2 mMol/L (3.7-5.1); SODIUM 139 mMol/L (135-145); TOTAL BILIRUBIN 0.7 mg/dL (0.0-1.5); TOTAL PROTEIN 7.4 g/dL (6.0-8.4)
--- NOTE | 2016-06-15 14:02 | NUR ---
Significant Event: PT IS NON-VERBAL; MOANS AT TIMES. FOLLOWS SIMPLE COMMANDS AT TIMES. L)PUPIL REMAINS SLUGGISH AND SLIGHTLY BIGGER THAN R)PUPIL. 2-ASSIST/TURN Q2H/FULL LIFT. VITAL SIGNS STABLE; ON ROOM AIR. INCONTINENT LARGE AMOUNTS OF URINE. LAST BM ON 06/09/16. BOWEL SOUNDS PRESENT X4. BILATERAL CALF PUMPS ON. L)FOOT DROP BOOT IN PLACE. IV TO L)HAND INFUSING IV FLUIDS WITHOUT COMPLICATIONS. HEAD CT DONE THIS AM DUE TO PT BEING VERY DROWSY/LETHARGIC. STATED THAT THE RESULTS WERE STABLE. PUREED DIET; THIN LIQUIDS. PT HAS NOT TAKEN ANY PO THIS SHIFT DUE TO DROWSINESS AND UNABLE TO FOLLOW CONSISTENT COMMANDS. SPOKE WITH REGARDING THE PT'S LETHARGY/DROWSINESS. RECOMMENDED PLACING A LUMBAR DRAIN AND SPOKE WITH THE PT'S . LUMBAR DRAIN WAS INSERTED AT THE BEDSIDE FROM 4653-9924 PER . DRAIN IS TO BE CLAMPED; EVERY HOUR, OPEN CLAMP AND 7 ML OF FLUID IS TO BE DRAINED AND THEN IMMEDIATELY CLAMP. VENOUS DOPPLER OF L)UPPER EXTREMITY DONE TO RULE OUT DVT; RESULTS WERE NEGATIVE. Follow up: CONTINUE TO MONITOR
--- NOTE | 2016-06-15 14:32 | NUR ---
A - NUT F/U. NONVERBAL. NOT OPENING MOUTH EASILY TODAY. 1:1 @ MEALS. 1+ EDEMA. DECREASED APPETITE. NO NEW LABS. MEDS: ROCEPHIN, IVF, NAMENDA, SYNTHROID, NAUSEA. DIET: PUREED. INTAKE: 0-50% ENSURE TID - 100% NEEDS: 3219-5777 KCAL, 70-87 G PRO D - INADEQUATE NUTRIENT INTAKE R/T DECREASED APPETITE AEB INTAKE RECORD. I - GOAL FOR INTAKE > 50% BY NEXT ASSESSMENT. WILL CONTINUE ENSURE TID. WILL ADD MAGIC CUP @ L&D. M/E - WILL MONITOR INTAKE. F/U IN 3-5 DAYS.
--- NOTE | 2016-06-16 02:02 | NUR ---
Significant Event: Patient non-verbal. Right eye reactive. Left eye blind, pupil sluggish and irregular in shape. First assessment patient was very lethargic, not easily aroused. Barely would open eyes. Moves right arm spontaneously and would squeeze hand to command. Withdraws to pain in left upper extremity and bilateral lower extremities. Began speaking few words that were incomprehensible, few that were appropriate around 2100. Has been more easy to arouse since then. Edema to left arm, kept elevated and ice applied. IV to right wrist fluids running at 75 ml/hr. Lumbar drain-clamped, drain 10 ml/hr. Applied oxygen-1 L this shift to keep above 90. Tachypneic. Incontinent of bowel and bladder. Pureed diet, thin liquids. No bm this shift. Total lift. Took meds crushed with applesauce with little difficulty. Given labetalol once this shift. No s/s of pain. NIHSS=25 this shift. Follow up: Turn q 2.
--- NOTE | 2016-06-16 17:35 | NUR ---
Significant Event: Patient is oriented to self and . PERRLA. Pulses palpable throughout. Left pupil is irregular and sluggish- right pupil is brisk and round. drowsy at times. Left arm and leg withdraw to pain. Blind in left eye. NIHSS- 26. Lungs are clear and diminihsed throughout. 1L MOSER. Scrotal edema. Lumbar drain- drain 12ml/ hr. BSA Follow up:
--- NOTE | 2016-06-16 18:58 | NUR ---
Significant Event: Patient is currently alert and oriented to self. States wifes name. VSS on RA- Goals is to keep SBP <150. NIHSS- 26. Left arm and leg withdraw to pain. Right arm and leg- spont and command. Blind in left eye. PIV to right wrist/ Lungs are clear and diminished throughout. Scrotal edema. Lumbar drain in place- drain 12ml/hr. Incontinent. 1:1 feeder. Pleasant and cooeprative with care Follow up:
--- NOTE | 2016-06-17 04:36 | NUR ---
Significant Event: The Patient is Alert and Oriented x1, person only. Drowsy at times, awaken to loud voice. Moves right extremities spontaneously and to command. Left extremities flaccid-withdrawls to pain. NIHSS 23. Blind in the left eye. VSS. on room air. SBP goal is to keep it less than 150. PIV to the Right wrist infusing D5NS at 75ml/hr. Edema to left extremities. Incontinent of bladder and bowel. Lumbar drain to back- goal is to drain 12ml off/hr. Crush meds in applesauce. Pureed diet with thin liquids-1:1 feeder. Full Lift. Follow up:
[2016-06-17 04:46] LABS: BASOPHIL % 0.4 %; EOSINOPHIL # 0.1 K/uL (0.0-0.5); EOSINOPHIL % 1.3 %; HEMATOCRIT 39.1 % (37.0-53.0); HEMOGLOBIN 13.4 g/dL (11.0-16.0); IMMATURE GRANULOCYTE % 0.4 %; LYMPHOCYTE # 1.3 K/uL (0.8-4.0); LYMPHOCYTE % 23.3 %; MCH 34.2 pg (27.0-34.0); MCHC 34.3 gm/dL (32.0-36.5); MCV 99.7 fl (83.0-98.0); MONOCYTE # 0.5 K/uL (0.0-1.0); MONOCYTE % 9.5 %; MPV 8.7 fl (9.4-12.4); NEUTROPHIL # (ANC) 3.6 K/uL (1.4-9.0); NEUTROPHIL % 65.1 %; NRBC % 0 /100WBC (0-0.00); PLATELET COUNT 249 K/uL (150-450); RBC 3.92 M/uL (3.50-5.50); RDW-CV 11.7 % (11.9-14.6); WBC 5.5 K/uL (4.0-11.0)
[2016-06-17 05:52] LABS: ANION GAP 11.4 (10.0-19.0); BLOOD UREA NITROGEN 15 mg/dL (6-24); CALCIUM 8.2 mg/dL (8.5-10.5); CHLORIDE 109 mMol/L (96-110); CO2 24 mMol/L (22-32); CREATININE 0.6 mg/dL (0.6-1.3); ESTIMATED GFR (MDRD EQUATION) > 60; POTASSIUM 3.4 mMol/L (3.7-5.1); SODIUM 141 mMol/L (135-145)
--- NOTE | 2016-06-17 15:13 | NUR ---
Significant Event: PT ALERT TO SELF/BIRTHDAY. BLIND IN L)EYE. 2-ASSIST/FULL LIFT/TURN Q2H. FOLLOWS COMMANDS. L)EXTREMITIES REMAIN FLACCID; DOES WITHDRAW TO PAIN. R)EXTREMITIES MOVES SPONTANEOUSLY AND TO COMMAND. SBP GOAL TO KEEP LESS THAN 150. IV LABETOLOL GIVEN X1 AT 1419. SBP'S HAVE RANGED FROM 130'S-170'S. INCONTINENT URINE. NO BM THIS SHIFT. LUMBAR DRAIN INTACT; CHANGED DRESSING TO BACK AT 1200. GOAL IS TO DRAIN 12 ML PER HOUR FROM LUMBAR DRAIN; KEEP DRAIN CLAMPED UNLESS EMPTYING. TEA COLORED DRAINAGE NOTED. BILATERAL CALF PUMPS AND L)FOOT DROP BOOT ON. MEDICATIONS CRUSHED AND GIVEN IN APPLESAUCE. IV TO R)WRIST INFUSING FLUIDS WITHOUT COMPLICATIONS. PUREED DIET WITH THIN LIQUIDS; 1:1 FEEDER. FAIR APPETITE. HAS BEEN AT BEDSIDE ALL SHIFT. Follow up: PLAN FOR SEPTIC CLEANER SHUNT PLACEMENT ON SUNDAY PER .
--- NOTE | 2016-06-18 04:51 | NUR ---
Significant Event: PATIENT ALERT TO SELF AND . D/O TO PLACE AND TIME. BLIND IN LEFT EYE. 2 ASSIST/FULL LIFT. LEFT SIDE FLACCID BUT REACTS TO PAIN. RIHT SIDE MOVES SPONTANEOUSLY AND TO COMMAND. SBP GOAL TO KEEP LESS THAN 150. IV LABETOLOL GIVEN X2. INCONTINENT OF URINE. LUMBAR DRAIN INTACT. DRAIN 12ML/HR, KEEP DRAIN CLAMPED UNLESS EMPTYING. TEA COLORED DRAINAGE NOTED. LEFT FOOT IN DROP BOOT. MEDICATIONS CRUSHED AND GIVEN IN APPLESAUCE. IV TO RIGHT WRIST INFUSING FLUIDS AT 75/HR. PUREED DIET WITH THIN LIQUIDS, 1:1 FEEDER. Follow up: METROLOGY TECHNICIAN WITH DR FRITZ ON SUNDAY.
--- NOTE | 2016-06-18 12:17 | NUR ---
A - NUT F/U. ALERT TO SELF. BLIND L) EYE. LUMBAR DRAIN IN PLACE - POSSIBLE CARDIOLOGY PHYSICIAN ASSISTANT SHUNT TO BE PLACED. 1:1 @ MEALS. DECREASED APPETITE, ENC PO INTAKE. 1-2+ EDMEA. LABS: GLU 118, ALB 3.2 MEDS: D5NS, SYNTHROID, BOWEL/NAUSEA, CEFAZOLIN DIET: INTAKE: PUREED. INTAKE: 0-50% ENSURE TID, MAGIC CUP @ L&D NEEDS: [id number] KCAL, 70-87 G PRO D - INADEQUATE NUTRIENT INTAKE R/T DECREASED APPETITE AEB INTAKE RECORD. I - GOAL FOR FOR INTAKE > 50% BY NEXT ASSESSMENT. IF INTAKE DOES NOT IMPROVE AFTER SHUNT PLACEMENT PT MAY BENEFIT FROM ENTERAL NUTRITION. WILL CONTINUE CURRENT SUPPLEMENTS. M/E - WILL MONITOR INTAKE F/U IN 3-4 DAYS.
--- NOTE | 2016-06-18 19:41 | NUR ---
Significant Event: Patient alert. VS stable. On RA. Full lift transfer for nurse staff. Patient up in chair this shift. L) side is flaccid but patient will react to pain. Blind to L) eye. No PRN medications given for BP control. Patient incontinent of urine this shift. 1:1 feeder. Lumbar drainage is intact with 12ml/hr drainage. Medications to be given crushed in applesauce. Patient will have FILTER BED PLACER shunt done by DR. Parsons on 06/19/16. Permits signed and on Chart. Surgery scheduled for 0900. CT w/o contrast for 0300. At 2100 order to clamp the lumbar drain. Family supportive at bedside. Follow up:
--- NOTE | 2016-06-19 04:26 | NUR ---
Significant Event: Patient alert to self and . Denies numbness and tingling. Moves right extremities spontaneously and to command. Left extremities no effort against gravity; does react to pain. Blind in left eye. Left side facial droop. 2 assist/full lift. SBP goal is less than 150. Incontinent of urine. Lumbar drain, drained 12mL/hr until 2100, then clamped. CT at 0300. NPO at midnight. Lumbar drain intact. Left foot in droop boot. Takes meds crushed in applesauce. IV fluids running at 75/hr. Pureed diet with thin liquids. 1:1 feeder. MOLD ENGRAVER with Dr Parsons at 0900. Follow up:
--- NOTE | 2016-06-19 15:45 | NUR ---
Spoke with patient's and daughter, Milka regarding discharge plans. says Dr. Parsons has agreed he can transfer to [place] as long as their is a neurosurgeon associated with the facility he goes to. Daughter has a number of questions. She has a list of several IRF in [place]. Told her have contacted 2 of them and they were not able to accept him. Told her with the shunt and the changes with patient will call them again. Talked about other options on the list and mother's concern with location. Daughter says any of the facilities are close to one of the kids and mom can stay with them. /mom says she wants to stay in her [place] home and does not want a downtown facility so takes one off the list and daughter will check on location for a couple of other facilities. talked with daughter about IRF and SNFs. She voices understanding but says they prefer IRF. Told her I will contact the IRFs and see if anyone will accept him. Will follow.
--- NOTE | 2016-06-19 19:01 | NUR ---
Significant Event:VSS, Dilaudid 2mg po at 1400 and Tylenol 650mg po 1700 for pain. Alert to name, recognized family members. L arm flaccid, reacts to pain, moves R arm, and R leg (spontaneously). Foot drop boot to L. Speech is clear/slow. R pupil 3mm reactive, L eye blind. NIHSS 20. Dsg to L lateral/top of head, L mid abdomen have scant amount of bloody drainage, Dsg to lumbar back is CDI. Incontinent of urine and bm. [id number] IV infuses @ 75ml/hr per R posterior FA. Follow up:Labs and post op CT scan in a.m.
--- NOTE | 2016-06-20 04:31 | NUR ---
Significant Event: Alert. Wasn't able to tell me his name or birthday throughout the night but was able to answer some questions and carry on small conversations at times. Followed commands at times. L) side responds to pain. Blind in L) eye. L) facial droop. NIHSS 23. Up full lift. AAT. SBP goal less than 150 labetololx1 for SBP of 160. Vitals and neuros Q2hrs. RA lungs clear. Pureed diet with thin liquids. NO straws. 1:1 feeder. Takes pills crushed in applesauce. Inc of bowel and bladder. Drsg to L) side of head shadow drainage. Drsg to Abdomin shadow drainage. Drsg to back c/d/i. IV to R) wrist running at 75ml/hr. Follow up: x-rays this am. Possible rehab in [place] at end of the week
[2016-06-20 05:04] LABS: BASOPHIL % 0.1 %; EOSINOPHIL % 0.4 %; HEMOGLOBIN 13.8 g/dL (11.0-16.0); IMMATURE GRANULOCYTE % 0.4 %; LYMPHOCYTE # 1.8 K/uL (0.8-4.0); LYMPHOCYTE % 23.8 %; MCH 34.5 pg (27.0-34.0); MCHC 35.4 gm/dL (32.0-36.5); MCV 97.5 fl (83.0-98.0); MONOCYTE # 0.6 K/uL (0.0-1.0); MONOCYTE % 7.4 %; MPV 8.7 fl (9.4-12.4); NEUTROPHIL # (ANC) 5.1 K/uL (1.4-9.0); NEUTROPHIL % 67.9 %; NRBC % 0 /100WBC (0-0.00); RDW-CV 11.7 % (11.9-14.6); WBC 7.5 K/uL (4.0-11.0)
[2016-06-20 05:07] LABS: PLATELET COUNT 315 K/uL (150-450)
[2016-06-20 05:16] LABS: ALBUMIN 2.8 gm/dL (3.5-5.0); ANION GAP 14.1 (10.0-19.0); BLOOD UREA NITROGEN 11 mg/dL (6-24); CALCIUM 8.6 mg/dL (8.5-10.5); CHLORIDE 104 mMol/L (96-110); CO2 23 mMol/L (22-32); CREATININE 0.7 mg/dL (0.6-1.3); ESTIMATED GFR (MDRD EQUATION) > 60; PHOSPHORUS 3.3 mg/dL (2.5-4.9); SODIUM 137 mMol/L (135-145)
[2016-06-20 05:19] LABS: POTASSIUM 4.1 mMol/L (3.7-5.1)
--- NOTE | 2016-06-20 15:03 | NUR ---
Significant Event: vss. alert to person. up with a full lift. patient is a feeder. 2 large inc voids 0537 and 0755, but from 08-1000 patient stated needed to void 8 to 10 times but did not void. bladderscan done had 670ml. st. cath times one ordered got 800ml out Follow up: monitor
--- NOTE | 2016-06-20 15:50 | NUR ---
Earlier today attempted to contact the facilities on the daughter's list. Had to leave VMMs at most of the facilities. Am asking facilities if they have both senior living unit and inpatient rehab unit. In reviewing patient's therapy notes do not anticipate inpatient rehab units will think he is ready for their intense hours of therapy. Talked to patient's and daughter regarding process and skilled care versus inpatient rehab. says he was able to stand with 2 therapies for a very short period of time today. prefers [facility] and [place] areas of [place]. Talked about transporation to [place] and says one of the doctors didn't know if patient should fly or not. Told her once we have a facility will discuss with doctors best method of transportation for him. Received call from Carri Villar at [facility] inpatient rehab. She says they do not have a senior living unit at their hospital. She says they will look at him for inpatient rehab. Will fax information. Received call from Moriah Pope at [facility] and they only have inpatient rehba. She is not aware of any facilities in [facility] that have skilled and inpatient rehab. She does have a list of skilled facilities in the [facility] she will fax to me. She says [facility] has a facility in [place] and [place] and [facility] [place] [facility]. Received call from Miladys at [facility] and they do not have a skilled unit at the hospital. She says there are no facilities in the [facility] that have both skilled care and inpatient rehab. She says she knows patient go from skilled care to inpatient rehab. Will update and daughter and share list with them. Will continue to work on placement in [place] for patient. Will follow.
--- NOTE | 2016-06-21 04:27 | NUR ---
Significant Event: Alert to self and birthdate. Confused. Conversational. L) side no movement responds to pain. L) sided facial droop. L) eye blind. R) side both upper and lower extremities moves spontaneously. Effort against gravity in R) leg. Drift in R) arm. NIHSS 18. Up full lift. VSS. Goal to have SBP <150 no labetolol needed during the night. On RA lungs clear. Pureed diet with thin liquids. NO straws. 1:1 feeder. Takes pills crushed in pudding or applesauce. Inc of urine. Having problems emptying his bladder. Straight cath x1 and started pt on flowmax. Pt has had two small voids since and has not complained of discomfort. Last BM 06/19. Drsg to L) side of head shadow drainage. Drsg to abdomin shadow drainage. IV to R) forearm SL. On scheduled tylenol for pain. Follow up: [facility] at the end of the week?
[2016-06-21 04:52] LABS: ANION GAP 11.7 (10.0-19.0); CALCIUM 8.5 mg/dL (8.5-10.5); CHLORIDE 104 mMol/L (96-110); CO2 28 mMol/L (22-32); CREATININE 0.8 mg/dL (0.6-1.3); ESTIMATED GFR (MDRD EQUATION) > 60; POTASSIUM 3.7 mMol/L (3.7-5.1); SODIUM 140 mMol/L (135-145)
[2016-06-21 04:54] LABS: BLOOD UREA NITROGEN 17 mg/dL (6-24)
--- NOTE | 2016-06-21 11:31 | NUR ---
A - NUT F/U. ALERT TO SELF. CONFUSED. DEMENTIA. L) SIDED WEAKNESS. DYSPHAGIA. CASSANDRA DEVELOPER SHUNT PLACED. 1:1 @ MEALS. DECREASED APPETITE, 1-2+ EDEMA. LABS: GLU 101, ALB 2.8 MEDS: SYNTHROID, BOWEL/NAUSEA, ANCEF DIET: PUREED. INTAKE: 0-50% ENSURE TID, MAGIC CUP @ L&D NEEDS: 1505-4330 KCAL, 70-87 G PRO D - INADEQUATE NUTRIENT INTAKE R/T DECREASED APPETITE AEB INTAKE RECORD. I - GOAL FOR INTAKE > 50% BY NEXT ASSESSMENT. WILL ADD ENSURE PUDDING @ B. M/E - WILL MONITOR INTAKE F/U IN 2-4 DAYS.
--- NOTE | 2016-06-21 13:26 | NUR ---
Significant Event: Alert to self. Confused. Visual hallucinations. L) eye blind. L) side responds to pain. R) side moves spontaneously. NIHSS 18. VSS. Room air with sats in the mid 90s. LS clear and diminished. Scrotal swelling. Large incontinence this AM. Patient voided 100 ml. Meds crushed in applesauce or pudding. Pureed diet with thin liquids. No straws. 1:1 feeder. Drsg L) side of head. Shadow drainage noted. L) abd dressing. Shadow drainage. Drsg to lower back. C/D/I. R) FA PIV. SLL. Full lift. Repositioned per protocol. Scheduled tylenol given for pain. Family at bedside. Pleasant and cooperative with cares. Follow up: [facility]???
--- NOTE | 2016-06-21 15:59 | NUR ---
Spoke with patient's daughter and this a.m. They have reviewed list of SNFs in [place] area that I gave them and give me a list of SNFs sorted by their preference. Daughter plans home today. Did receive call from Carri at [facility] rehab and she has reviewed information and feels at this time patient appropriate for SNF level of care. She says if continues to improve they would be willing to look at him again and accept him from an SNF. She did have some questions regarding patient's baseline before this hospitalization and said it would be helpful if therapy notes included more regarding his baseline for cognition and ADLs. Talked with Millie LANGFORD and she will talk with OT too. Attempted to call [facility] [place] and [facility] and unable to get through. Spoke with Dannie at [facility] in [place] and they will consider patient. Information faxed to Dannie. Left Ms at [facility], [facility] and [facility]. Will continue to contact SNFs. Will follow.
--- NOTE | 2016-06-22 01:52 | NUR ---
Significant Event: Patient alert and oriented to self. Perrla. Moves right upper and lower extremities spontaneously and to command. Left side flaccid, withdraws to painful stimuli. Left side facial droop. NIHSS=15 this shift. Denies pain. Lungs clear and dim on room air. VSS. Afebrile. No bm this shift. Incontinent of bladder, continent at times. Full lift for transfers. IV to right FA SL. Pureed diet, thin liquids, no straws. MD will change head dressing today. Turn q 2. Follow up: [facility] later this week.
[2016-06-22 04:21] LABS: ANION GAP 13.6 (10.0-19.0); BLOOD UREA NITROGEN 14 mg/dL (6-24); CALCIUM 8.5 mg/dL (8.5-10.5); CHLORIDE 104 mMol/L (96-110); CO2 27 mMol/L (22-32); CREATININE 0.8 mg/dL (0.6-1.3); ESTIMATED GFR (MDRD EQUATION) > 60; POTASSIUM 3.6 mMol/L (3.7-5.1); SODIUM 141 mMol/L (135-145)
--- NOTE | 2016-06-22 16:03 | NUR ---
Significant Event: Patient alert to self only. Puts leg out of bed but unable to get up on his own. Frequently states he "wants to go [place] there and [place]". Pupils 2mm, brisk. L) side flaccid. Moves R) side spontaneously. Blind in the L) eye. Hypertensive, all other VSS on room air. Keep SBP <150. PRN labetalol if >150. Incontinent of both bowels and bladder, brief on. Mass noted to scrotum. Dressing to abdomen, shadow drainage noted. Island drsg to lumbar back, clean/dry. Telfa drsg to head, put island drsg over top due to patient picking at zaki. IV to R) FA, saline locked. Family at bedside. Follow up: VS/neuros q 4 hours. Up with full lift. Pureed diet with regular liquids, no straws. 1:1 feeder. [place] tomorrow???
--- NOTE | 2016-06-22 17:23 | NUR ---
Earlier today called more [place] SN facilities. [facility] does not accept [employer]. [facility] has no male beds. Left VMM at [place] at [facility]. Spoke with Lalitha at [facility] and faxed information to her. Have not heard back from [facility] or any of facilities left VMM at yesterday. Spoke with and ALEYDA and updated them. Patient sleeping at this time. Answered their questions. Continued to look for skilled care in [place]. Will follow.
--- NOTE | 2016-06-23 07:18 | NUR ---
Significant Event: Patient Alert to self, at times. Blind in left eye. Denies pain. VSS. Afebrile. Lungs clear and dim on room air. Incontinent to bowel and bladder. Pureed diet, thin liquids. Full lift. PIV to right FA SL. Bm this shift. Turn q 2. Follow up: Placement pending
--- NOTE | 2016-06-23 12:45 | NUR ---
Message from staff at [facility] and they are unable to accept patient due to his dementia. Message from Milka at [facility] [place] and they would be willing to look at him. Information faxed to [facility]. Will follow.
--- NOTE | 2016-06-23 16:03 | NUR ---
Significant Event: Patient alert to self only. Blind in L) eye. L) side flaccid, withdraws to pain. R) side moves spontaneously. Pupils 2mm, brisk. VSS, on room air. Keep SBP <150. Incontinent of both bowels and bladder, brief on. Mass to scrotum noted. BM today. Island drsg to abdomen, shadow drainage. Island drsg to lumbar back. Surgical incision to L) posterior head, sutures in place, open to air. IV to R) wrist, saline locked. Family at bedside. Follow up: VS/neuros q 4 hours. Up with full lift. Pureed diet, regular liquids, no straws. 1:1 feeder. [place] next week??
--- NOTE | 2016-06-24 04:58 | NUR ---
Significant Event: Pt A&Ox1, pleasantly confused. Neuro checks q4. L eye blind, L side of face has some drooping. LS clear/dim, RA, con't pulse ox. VSS, BP in R arm only, parameters to keep SBP <150's. Rt wrist IV, SL, good blood return. 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 Incontient of bowels and bladder. Pureed diet, no straws, pills crushed in applesauce. 1:1 feeder. [place] drsg to abd and lumbar back. Lt posterior head, sutured, MINA. Scrotum enlarged w/mass to Rt side. No c/o pain and has been refusing Tylenol. Follow up:
--- NOTE | 2016-06-24 10:16 | NUR ---
A - NUT F/U. 1:1 @ MEALS. INTAKE HAS IMPROVED SINCE LAST ASSESS. 1+ EDEMA LABS: K+ 3.6, GLU 102 MEDS: BOWEL/NAUSEA, SYNTHROID DIET: PUREED. INTAKE: 25-100%, AVG ~67% ENSURE TID, ENSURE PUDDING @ B, MAGIC CUP @ L&D NEEDS: 2826-6404 KCAL, 70-87 G PRO D - INADEQUATE NUTRIENT INTAKE AT TIMES R/T DECREASED APPETITE AEB INTAKE RECORD. I - GOAL FOR INTAKE 50-100% FOR DURATION OF STAY. WILL CONTINUE CURRENT SUPPLEMENTS. M/E - WILL MONITOR INTAKE F/U IN 3-5 DAYS.
--- NOTE | 2016-06-24 17:20 | NUR ---
Significant Event: alert. confused conversationally. oriented to person and year. states month is may, he is in [place] and does not know his age. NIHSS=15. No movement and dullness of sensation left upper and lower extremity. Tele with BBB. Blind left eye. Transfers with full lift. moderate continent bowel movement this shift. large incontinent voids this shift. order to straight cath if bladder scan is greater than 350. surgical sites to head and abdomen open to air. takes meds crushed in pudding/applesauce. pureed diet with thin liquids. does need set up and assistance with meals. ultra high fall risk does try to get out of bed and recliner b/p to be taken in right arm for consistant readings.
--- NOTE | 2016-06-25 04:30 | NUR ---
Significant Event: Pt A&Ox1. NIHSS=15. Pt flaccid on L side, slight tongue drift, and blind in that eye. Tele w/BBB. VSS, remains on RA. Transfers with full lift, q2 turn while in bed. Incontinent of bowel and bladder. Does have order to straight cath if bladder scan is >350. Pt has mass on Rt scrotum and redness associated with it. Surgical sites to head and abd stapled and MINA. Pureed diet, meds crushed in applesauce/pudding. Does need setup and assistance with meals. BP to be taken in Rt arm for consistency. Does try to get out of bed, ultra high fall risk. No c/o pain on shift. Follow up: Pt hasn't been taking his scheduled tylenol for me. Wrote sticky note to see if we can get it PRN and the liquid tylenol instead of pills. Please follow up.
--- NOTE | 2016-06-25 17:16 | NUR ---
Significant Event: neuro-a/o to person. states in [facility], month is May and not aware of what year it is. is very confused conversationally and repeatedly requests to leave. NIHSS=15. No movement to left upper or lower extremity. see NEURO assmt. room air. tele with BBB. VSS. full lift for transfers. incontinent of urine. small BM this shift. zaki to left side of head and left side of abdomen open to air- skin approximated with no redness or drainage. Denies pain. routine tylenol changed to PRN.
--- NOTE | 2016-06-26 04:10 | NUR ---
Significant Event: Pt A&O to self only. NIHSS=17. No mov't to L side, see neuro assessment. VS remain stable, RA, BBB on tele. Full lift for txs. Incontient of bowel and bladder. Has been voiding large amounts. [place] to Lt side of head and L side of abdomen MINA. Denied pain, but was very difficult to redirect and figidity, gave x1 dose of tylenol--some success. Scrotum remains reddened, please put cream on it with brief changes. While in bed, q2h simmons. Pt is a 1:1 feeder. Per , pt was Lt handed and has to relearn how to use his Rt hand. Pt also blind in Lt eye, so stand on Rt side when addressing him. Follow up: Pt has hx of advance dementia and hasn't been taking his memantine. Sticky note written on chart to see if can be restarted. Pt's is strongly pushing for d/c to be Sunday, but placement is still trying to be worked out.
--- NOTE | 2016-06-26 08:00 | NUR ---
late note entry due to being locked out of computer. Pt. received a bed bath today, as well as a shave.
--- NOTE | 2016-06-26 13:30 | NUR ---
Called and spoke with Dannie at [facility] as they had left message tsaying they would consider patient. He says they would accept patient if they had any openings. They have patient on their waiting list, but currently no beds. Called Milka at [facility] to follow on fax from last week. She says she meant to call and tell me they only got 4 pages of the fax (I did get confirmation fax that said 58 pages all sent). Faxed information again to Milka at [facility]. Spoke with his and sister and updated them. had talked to friend this w/e and has the name of a neurosurgeon and a family practice group in [place] that might consider following him. Will continue to look for a facility to accept him. Will follow.
--- NOTE | 2016-06-26 13:54 | NUR ---
Significant Event: VSS. PATIENT ALERT TO SELF. SLIGHT LEFT FACIAL DROOP NOTED. FOLLOWS COMMANDS. LEFT SIDE WITHDRAWS TO PAIN ONLY. PUPILS 2MM, BRISK. BLIND IN LEFT EYE. LUNGS CLEAR AND DIM ON ROOM AIR. DID C/O HEADACHE TODAY, TYLENOL GIVEN AT 1120 WITH RELIEF NOTED. IV IN RT HAND SALINE LOCKED. SCROTUM REMAINS RED AND EDEMATOUS, ALOE APPLIED WITH EACH DEPENDS CHANGE. INCONTINENT OF BOWEL AND BLADDER. UP WITH FULL LIFT. NIHSS 18 TODAY. ALARMS ON FOR SAFETY. NOW ON SOFT DIET, FEEDER. PILLS HAVE BEEN CRUSHED, BUT NOW THAT DIET ADVANCED HE MAY BE ABLE TO TOLERATE THEM WHOLE. GILDARDO TO HEAD INTACT. Follow up: NEURO STATUS. PLACEMENT. ALARMS.
--- NOTE | 2016-06-27 05:19 | NUR ---
Significant Event: PT A&O to self only. Slight facial droop to Lt side. Follows commands. Night NIHSS=18. Lt side does w/draw from pain only. PERRLA 2mm. Lt eye blind. LS clear/diminished on RA. No c/o pain throughout the night. Took small pills whole in applesauce; opened capsule and mixed with applesauce. IV pulled out by pt yesterday, ok'd by Hospitalist to keep out. Incontinent of bowels and bladder. Scrotum remains edematous (Rt>Lt), putting cream on it every time brief is changed. Diet has been advanced to soft, still no straws. Nohemy to head and abd remain intact and shows no s/s of infection. Hopefully, d/c today to SNF in [place]. Follow up:
--- NOTE | 2016-06-27 08:11 | NUR ---
A - NUTRITION F/U. NO NEW LABS. ALERT TO SELF. DIET: MECH SOFT, INTAKE 50%. OFFERED ENSURE TID, ENSURE PUDDING AT BF AND MAGIC CUP AT L/D. D - AT RISK W/ INADEQUATE ORAL INTAKE R/T DECREASED APPETITE AEB INTAKE RECORD. I - GOAL: 50% OR BETTER INTAKE BY DISMISSAL. M/E - CONT TO ENCOURAGE MEAL AND SUPPLEMENT INTAKE. POSSIBLE DISCHARGE TODAY.
--- NOTE | 2016-06-27 17:58 | NUR ---
Therapy talked to me today and feel he has made progress and would be appropriate for inpt. rehab. Talked to [facility] [place] admission staff and their inpt. rehab is full. Talked to Jaci at [facility] inpt rehab and they will look at him again. Information faxed. Called and left [facility]. Talked to Milka at [facility] and answered her questions. She says she will talk with her nurse bulk plant manager and get back to me. Had call from patient's son Uli. Called Uli back and updated him and answered his questions. Talked with Vianca and ALEYDA Rico and updated them and answered their questions. Received call from Darlin at [facility] and they are unable to accept patient due to his baseline cognition. Told her what family reports as baseline and she says it doesn't matter as that is not what was documented when he was admitted. Updated and ALEYDA. Will continue to work on placement.
--- NOTE | 2016-06-27 18:37 | NUR ---
Significant Event: no neuro changes. NIHSS=18. no movement to left upper extremity. slightly wiggling of toes to left lower extremity. a/o to person. confused conversationally. does have hx of severe dementia. tele with BBB. transfers with full lift. Calf SCDs on bilateral LE. Foot Drop boot to left lower extremity. Takes meds whole or crushed in pudding. BM this shift. Discharge plan- transfer to [place] when placement/acceptance occurs. patient up in chair for evening meal and fed self with setup and encouragement. is very encouraged/happy with this.
--- NOTE | 2016-06-28 01:22 | NUR ---
Significant Event: The patient is Alert and Oriented x1, Person only. Dull sensation to the left side. Withdrawls to painful stimuli on the Left side, but no other movement noted. Right extremities move spontaneously and to command. Up with Full Lift. Q2H turns. Denies Pain. VSS. On room air. No IV access per MD order. Incision to head sutured, and incision to abdomen stapled-both open to air. Incontinent or bowel and bladder. Crush meds and place in applesauce. Needs help setting up tray and monitor while eating. NIHSS 18. Blind in his Left Eye. Follow up: Waiting on placement
--- NOTE | 2016-06-28 10:00 | NUR ---
Call from Carri at [facility] rehab and she says to fax and update they will reevaluate patient. Update faxed. Will follow.
--- NOTE | 2016-06-28 16:16 | NUR ---
Significant Event: a/o to person. confused conversationally. did have c/o headache this shift with relief from PRN tylenol. No movement left upper extremity. Wiggles toes slightly to left lower extremity. dullness of sensation, impaired vision and facial droop left side. NIHSS=18. room air. Bundle [place]. Regular diet. needs fed/cueing to eat. Takes meds whole or crushed in pudding/applesauce. full lift with transfers [place] [facility] therapy is working on standing and walking. incontinent of urine. does have large continent bowel movement per [facility] today. Vital signs stable. Surgical site to abdomen- zaki open to air with no redness or drainage. Surgical site to head- sutures open to air with no redness or drainage. discharge plan-transfer to [place] when placement is found
--- NOTE | 2016-06-29 06:42 | NUR ---
Significant Event: Patient alert to self/ only. Perrl in right eye. Left eye blind. Moves right extremities spontaneously and to command. Withdraws to pain in left extremities. Dullness to right extremities and left lower. Left upper extremity patient states he can't feel anything. Left side facial droop. VSS. Lungs clear on RA. Mechanical soft diet. No bm this shift. Incontinent of bladder. Meds crushed in applesauce or pudding. Total lift. PT will stand/walk patient. Sutures to head intact. Nohemy to abdomen intact. No iv access. No complaints of headache this shift. Follow up: Placement pending for [place].
--- NOTE | 2016-06-29 13:31 | NUR ---
Significant Event: PT ALERT TO SELF; HAS BEEN PLEASANTLY CONFUSED. FOLLOWS COMMANDS. L)UPPER EXTREMITY HAS NO MOVEMENT; ABLE TO SLIGHTLY WIGGLE L)TOES. BLIND IN L)EYE. MOVES R)EXTREMITIES SPONTANEOUSLY. GENERALIZED EDEMA. 2-ASSIST/FULL LIFT PER NURSING. DID PIVOT TRANSFER WITH THERAPY THIS AM. INCONTINENT URINE. LARGE BM THIS SHIFT PER COMMODE. GILDARDO TO ABDOMEN INTACT-OPEN TO AIR. SUTURES TO HEAD INTACT-OPEN TO AIR. BILATERAL CALF PUMPS ON; L)FOOT DROP BOOT IN PLACE. TAKES MEDICATIONS CRUSHED IN APPLESAUCE. MECHANICAL SOFT DIET; THIN LIQUIDS. NEEDS SUPERVISION WITH MEALS. FAIR APPETITE. NO COMPLAINTS OF PAIN. HAS BEEN UP IN THE CHAIR SINCE BREAKFAST. Follow up: PENDING PLACEMENT IN [place]
--- NOTE | 2016-06-29 15:08 | NUR ---
Received call this a.m. from Carri at [facility] inpatient rehab and she agrees ready for inpatient rehab. She says she needs to review with her medical doctor md/medical director and will let me know this afternoon if able to accept. She says to go ahead and talk with about transportation as they can could take him tomorrow if their medical doctor md/medical director accepts. Talked with and ALEYDA about the above. says she talked to Milka about [facility] and she said it would be okay. She is hopeful they will say yes. Talked to her about transportation and she would like him to fly. She says the ground ambulance just seems like such a long flight for him. She says to ask if she can fly with him, although she doesn't know yet if she will or not. Call from Carri and she needs more information for her medical doctor md/medical director. Talked to Dr. Parsons and updated him. He says to give them his cell phone number as he would be glad to talk with their medical doctor md/medical director. Information faxed to Carri at [facility] and included Dr. Parsons's number. Called [facility] and their quote would be the same as previously however they are M-T flights. Shay said he will see if he can find anyone to do a Sunday flight. Shay calls back and says has no one in [place] to do the flight but does have a plane in [place] that could do the flight but it would increase to $12,050 for the flight. Called [facility] for fixed wing and they gave me an estimate of $9143 bed to bed and they could transport tomorrow. Called [facility] and they will get back to me with an estimate. Updated on the flight information. She does want to fly him and prefers tomorrow if [facility] can accept him tomorrow and we can get a fixed wing transport for him. Received a call from Carri at [facility] and their . talked to Dr. Parsons and they can accept patient tomorrow. Told her where we are at with the flight and she says to just call and leave a message once arrangements are made. Called and updated patient's . Will follow.
--- NOTE | 2016-06-29 17:38 | NUR ---
Received quote from [facility] fixed wing transport. Called and talked with Vianca and reviewed choices and she chooses [facility]. Reminded her again their quote is for flight only and ambulances will build separately. She voices understanding. Called Rachel at [facility] and arranged for fixed wing transport to [facility] in rehab tomorrow at 1000. [facility] will make the arrangements for bed to bed transport. Called Drs. Parsons and Eneida and updated them. Called , Vianca and updated her. Called [facility] and updated them. Plan for transfer to inpatient rehab at [facility] inpatient rehab in [place] tomorrow at 1000 via [facility] fixed wing transport. Will follow.
--- NOTE | 2016-06-30 01:51 | NUR ---
Significant Event: The Patient is Alert and Oriented x1. Forgetful. NIHSS 18. Dull Sensation to the Left extremities, Moves the Right side spontaneously and to command. Left side withdrawls to pain, other than that no other movement noted. Denies Pain. No IV access per MD order. VSS. On room air. Incontinent of bowel and bladder. Incision to head sutured, and Incision to abdomen stapled and open to air. Blind in the Left eye. Takes pills crushed in applesauce. Foot drop boot left leg. Supervise while eating. Follow up: Discharge to [place] today
--- NOTE | 2016-06-30 09:43 | NUR ---
Patient alert to self. Follows commands with right upper and lower extremities. Dull sensation to the left side. Left side upper and lower extremities flaccid. L) facial droop. Can be forgetful at times. NIHSS 18. VSS. Afebrile. No edema noted. Room air with sats in the mid 90s. LS clear and diminished. Incontinent of urine and stool. Crushed meds in applesauce. Regular diet with thin liquids. Sutures to head and zaki to abdomen. No IV access. Full lift. Denies pain. Family at bedside. Pleasant and cooperative with care.
--- NOTE | 2016-06-30 10:15 | NUR ---
Several calls with Carri at [facility] Inpatient rehab unit. Orders faxed. Nurse will call nurse to nurse report. Talked with patient, and sister in law and they are glad he is transferring today. Patient is emotional about leaving and getting to be closer to his family. Fixed wing crew and ambulance crew here to transport patient. Patient transferring to [facility] inpatient rehab unit today via fixed wing.
--- NOTE | 2016-06-30 10:47 | NUR ---
Significant Event: Patient transferred to [facility] rehab per fixed wing. Please refer to transfer note. Follow up:
== END 2016-06-30 10:15 | DRG 31 ==
LOC: GICU 18:15 → GNTU 19:30 → GICU 06-10 08:48 → GNTU 06-10 12:44
PROVIDERS: Family Medicine; Internal Medicine; Neurological Surgery; Nurse Practitioner Family; ADMIT Internal Medicine
PROC: 009U3ZZ Drainage of Spinal Canal, Percutaneous Approach (ICD-10-PCS; 2016-06-15)
PROC: 00160J6 Bypass Cerebral Ventricle to Peritoneal Cavity with Synthetic Substitute, Open Approach (ICD-10-PCS; principal; 2016-06-19)
DX: I61.5 Nontraumatic intracerebral hemorrhage, intraventricular (principal); G93.40 Encephalopathy, unspecified; G81.02 Flaccid hemiplegia affecting left dominant side; N39.0 Urinary tract infection, site not specified; R13.10 Dysphagia, unspecified; F03.90 Unspecified dementia, unspecified severity, without behavioral disturbance, psychotic disturbance, mood disturbance, and anxiety; G81.94 Hemiplegia, unspecified affecting left nondominant side; G91.0 Communicating hydrocephalus; I61.8 Other nontraumatic intracerebral hemorrhage; R29.810 Facial weakness; I10 Essential (primary) hypertension; E03.9 Hypothyroidism, unspecified; K59.00 Constipation, unspecified; R33.9 Retention of urine, unspecified; E87.6 Hypokalemia; Z66 Do not resuscitate
CPT/HCPCS: J0360; J0690; J0696; J1100; J1650; J2060; J2405; J3420; J3480; J7030; J7040; J7042; J7050; J7060; J7120

== ENCOUNTER → 2016-06-07 | Outpatient (CLI) | payer MEDICARE, BC ==
[~2016-06-07] MED LIST: ASPIRIN325 MG PO; LEVOTHROID (S100 MCG PO; MEMANTINE HCL10 MG PO
== END | disposition disaster alternative care site (69) ==
LOC: GAMB 19:18
DX: R07.9 Chest pain, unspecified (principal)
CPT/HCPCS: A0425; A0428

== ENCOUNTER → 2016-06-30 | Outpatient (CLI) | payer MEDICARE, BC | END | disposition disaster alternative care site (69) | LOC: GAMB 10:19 | DX: I63.9 Cerebral infarction, unspecified (principal) | CPT/HCPCS: A0425; A0428 ==